=== PATIENT | female | born 2000 | race American Indian/Alaskan Native ===

== ENCOUNTER 2021-06-19 23:26 | Emergency (ER) | payer MEDICAID ==
[2021-06-20 00:03] VITALS: BP 109/57
[2021-06-20] MEDS ORDERED: ACETAMINOPHEN 325 MG TAB PO ONE (02:24)
[2021-06-20 03:21] LABS: Basophils % (Auto) 0.2 % (0.0-1.8); Eosinophils # (Auto) 0.1 K/mm3 (0.0-0.4); Eosinophils % (Auto) 0.8 % (0.0-4.3); Hematocrit 32.4 % (30.3-42.9); Hemoglobin 9.9 gm/dl (10.1-14.3); Lymphocytes # (Auto) 2.4 K/mm3 (1.2-5.4); Lymphocytes % (Auto) 23.2 % (13.4-35.0); Mean Corpuscular HGB Conc 31 % (30-34); Mean Corpuscular Volume 77 fl (79-97); Monocytes # (Auto) 0.7 K/mm3 (0.0-0.8); Monocytes % (Auto) 6.4 % (0.0-7.3); Platelet Count 215 K/mm3 (140-440); Red Blood Count 4.22 M/mm3 (3.65-5.03); Red Cell Distribution Width 14.7 % (13.2-15.2)
[2021-06-20 03:30] LABS: Bilirubin,Urine NEG (Negative); Blood,Urine NEG (Negative); Color,Urine Yellow (Yellow); Mucus,Urine 3+ /HPF; Protein,Urine <15 mg/dL mg/dL (Negative); Urobilinogen,Urine < 2.0 mg/dL (<2.0)
[2021-06-20 03:36] LABS: Alanine Aminotransferase 6 units/L (7-56); Albumin 3.9 g/dL (3.9-5); Blood Urea Nitrogen 10 mg/dL (7-17); Calcium 8.6 mg/dL (8.4-10.2); Hemolysis Index 0
[2021-06-20 03:38] LABS: BUN/Creatinine Ratio 33
--- NOTE | 2021-06-20 03:41 | Emergency Department Report ---
ED Abdominal Pain HPI - General Chief Complaint: Abdominal Pain Stated Complaint: BACK PAIN Source: patient Mode of arrival: Ambulatory Limitations: No Limitations - History of Present Illness Initial Comments: Patient is a A0 21-year-old -Hungarian female with no past medical history presents to the ED with complaint of acute onset persistent diffuse low abdominal pain that radiates to the bilateral flanks for the last 1 week. Patient states that she knows that she is but does not know how far along she is since her menstrual cycles are irregular and that she has been on control for a while. Patient states that she has not been evaluated by any [facility] physician. Patient denies vaginal bleeding, vaginal discharge, dysuria, urinary frequency and urgency, nausea, vomiting, diarrhea, chest pain or shortness of breath and sore throat, headache or dizziness. MD Complaint: abdominal pain, flank pain -: Sudden, week(s) (1) Location: suprapubic Radiation: L flank, R flank, bilateral flank Migration to: no migration, suprapubic, L flank, R flank, bilateral flank Severity: moderate Severity scale (0 -10): 6 Quality: cramping, aching, sharp Consistency: constant Improves With: nothing Worsens With: movement Associated Symptoms: denies other symptoms, anorexia. denies: nausea, vomiting, diarrhea, fever, chills, constipation, dysuria, hematuria - Related Data LMP (females 10-50): unknown Previous Rx's Medication Instructions Recorded Last Taken Type Acetaminophen [Tylenol] 500 mg PO Q6HR PRN #30 tablet 06/20/21 Unknown Rx Allergies Allergy/AdvReac Type Severity Reaction Status Date / Time No Known Allergies Allergy Verified 06/20/21 02:52 ED Review of Systems ROS: Stated complaint: BACK PAIN Other details as noted in HPI Constitutional: denies: chills, fever Eyes: denies: eye pain, eye discharge, vision change ENT: denies: ear pain, throat pain Respiratory: denies: cough, shortness of breath, wheezing Cardiovascular: denies: chest pain, palpitations Endocrine: no symptoms reported Gastrointestinal: abdominal pain (suprapubic). denies: nausea, vomiting, diarrhea, constipation, hematemesis, melena, hematochezia Genitourinary: denies: urgency, dysuria, discharge Musculoskeletal: denies: back pain, joint swelling, arthralgia Skin: denies: rash, lesions Neurological: denies: headache, weakness, paresthesias Psychiatric: denies: anxiety, depression Hematological/Lymphatic: denies: easy bleeding, easy bruising ED Past Medical Hx - Past Medical History Previous Medical History?: No - Surgical History Past Surgical History?: No - Medications Home Medications: Home Medications Medication Instructions Recorded Confirmed Last Taken Type Acetaminophen [Tylenol] 500 mg PO Q6HR PRN #30 tablet 06/20/21 Unknown Rx ED Physical Exam - General Limitations: No Limitations General appearance: alert, in no apparent distress - Head Head exam: Present: atraumatic, normocephalic, normal inspection - Eye Eye exam: Present: normal appearance, PERRL, EOMI Pupils: Present: normal accommodation - ENT ENT exam: Present: normal exam, normal orophraynx, mucous membranes moist, TM's normal bilaterally, normal external ear exam - Neck Neck exam: Present: normal inspection, full ROM - Respiratory Respiratory exam: Present: normal lung sounds bilaterally. Absent: respiratory distress, wheezes, rales, rhonchi, chest wall tenderness, accessory muscle use, decreased breath sounds, prolonged expiratory - Cardiovascular Cardiovascular Exam: Present: regular rate, normal rhythm, normal heart sounds. Absent: systolic murmur, diastolic murmur, rubs, gallop - GI/Abdominal GI/Abdominal exam: Present: soft, tenderness (Palpable diffuse lower abdominal tenderness), normal bowel sounds. Absent: guarding, rebound, hyperactive bowel sounds, hypoactive bowel sounds, mass, bruit - Extremities Exam Extremities exam: Present: normal inspection, full ROM, normal capillary refill - Back Exam Back exam: Present: normal inspection, full ROM. Absent: tenderness, CVA tenderness (R), CVA tenderness (L), muscle spasm, paraspinal tenderness, vertebral tenderness - Neurological Exam Neurological exam: Present: alert, oriented X3, CN II-XII intact, normal gait, reflexes normal - Psychiatric Psychiatric exam: Present: normal affect, normal mood - Skin Skin exam: Present: warm, dry, intact, normal color. Absent: rash ED Course Vital Signs 06/19/21 23:58 Temperature 98.1 F Pulse Rate 97 H Respiratory 16 Rate Blood Pressure 109/57 [Left] O2 Sat by Pulse 100 Oximetry ED Medical Decision Making - Lab Data Result diagrams: 06/20/21 02:46 06/20/21 02:46 - Radiology Data Radiology results: report reviewed, image reviewed [facility] [address] [place] [address] Ultrasound Report Signed Patient: YUNG PORTER MR#: [id number] : 2000 Acct:[id number] Age/Sex: 21 / F ADM Date: 06/19/21 Loc: ED Attending Dr: Ordering Physician: DOUG DORANTES Date of Service: 06/20/21 Procedure(s): US OB >= 14 weeks Fetus Accession Number(s): [id number] cc: DOUG DORANTES TRANSABDOMINAL OB PELVIC ULTRASOUND INDICATION / CLINICAL INFORMATION: Pelvic and flank pain. COMPARISON: None available. FINDINGS: There is a single intrauterine with an estimated sonographic gestational age of 16 weeks 5 days and an EDC of 11/30/21. Clinical dates are 14 weeks 1 day. presentation is cephalic. The placenta is located anteriorly, grade 0 and is low lying without previa. Amniotic fluid volume is normal. The uterine cervix measures 3.5 cm in length and the internal os is closed. The heart rate is 138 bpm. Neither ovary is identified. IMPRESSION: Single viable 16 week 5 day intrauterine without complication. Signer Name: Desean Low MD Signed: 06/20/2021 5:47 AM Workstation Name: [id number] Transcribed By: RT Dictated By: Desean Low MD Electronically Authenticated By: Desean Low MD Signed Date/Time: 06/20/21546 DD/ TD/TT: - Medical Decision Making This is a A0 21-year-old -Hungarian female with no past medical history presents to the ED with complaint of acute onset persistent diffuse low abdominal pain that radiates to the bilateral flanks for the last 1 week. Patient states that she knows that she is but does not know how far along she is since her menstrual cycles are irregular and that she has been on control for a while. Patient states that she has not been evaluated by any [facility] physician. In the ED, patient is alert and oriented x3 and is not in any distress. Patient is hemodynamically stable. Patient was treated for pain in the ED with Tylenol. Lab test results were reviewed and [place] [id number]. Pelvic ultrasound showed a single live intrauterine of approximately 16 weeks and 5 days and with a heart rate of 138 bpm and no other abnormalities. On reevaluation, patient's pain is well controlled medication. Patient will discharge home on prescription of Tylenol and was given a referral to Dr. Diana the [facility] physician congregational care pastor for further evaluation and treatment. Patient was advised return to the ED immediately if symptoms get worse. Patient was otherwise advised to follow-up with [facility] physician in 3 to 5 days for reevaluation. - Differential Diagnosis UTI; ovarian cyst; ; muscle spasm; muscle strain; Critical care attestation.: If time is entered above; I have spent that time in minutes in the direct care of this critically ill patient, excluding procedure time. ED Disposition Clinical Impression: Abdominal pain during in second trimester Disposition: 01 HOME / SELF CARE / HOMELESS Is pt being admited?: No Does the pt Need Aspirin: No Condition: Stable Instructions: Abdominal Pain (ED), Abdominal Pain During , [id number] Additional Instructions: The pelvic ultrasound showed a single live intrauterine of approximately 16 weeks and 5 days with heart rate of 138 bpm and no other abnormalities. Therefore maintain a complete pelvic rest, take Tylenol as needed for pain and follow-up with your [facility] physician Dr. Diana as advised. Contact Dr. Diana's office first thing this morning to schedule a follow-up appointment. Return to the ED immediately if symptoms get worse. Prescriptions: Acetaminophen [Tylenol] 500 mg PO Q6HR PRN #30 tablet PRN Reason: Pain , Severe (7-10) Referrals: JODY DIANA MD [Staff Physician] - 3-5 Days Time of Disposition: 06:16 Print Language: SAMI
--- NOTE | 2021-06-20 05:56 | Ultrasound Report ---
TRANSABDOMINAL OB PELVIC ULTRASOUND INDICATION / CLINICAL INFORMATION: Pelvic and flank pain. COMPARISON: None available. FINDINGS: There is a single intrauterine with an estimated sonographic gestational age of 16 weeks 5 days and an EDC of 11/30/21. Clinical dates are 14 weeks 1 day. presentation is cephalic. The p lacenta is located anteriorly, grade 0 and is low lying without previa. Amniotic fluid volume is norm al. The uterine cervix measures 3.5 cm in length and the internal os is closed. The heart rate is 1 38 bpm. Neither ovary is identified. IMPRESSION: Single viable 16 week 5 day intrauterine without complication. Signer Name: Desean Low MD Signed: 06/20/2021 5:47 AM Workstation Name: [id number]
== END 2021-06-20 06:30 | disposition home or self-care (01) ==
LOC: ED 23:26
DX: O26.892 Other specified pregnancy related conditions, second trimester (principal); R10.30 Lower abdominal pain, unspecified; Z79.899 Other long term (current) drug therapy; Z3A.16 16 weeks gestation of pregnancy
CPT/HCPCS: 36415; 76805; 80053; 81001; 84702; 85025; 99284

== ENCOUNTER 2021-08-07 18:29 | Outpatient (CLI) | payer MEDICAID ==
[2021-08-07 19:18] VITALS: BP 102/57
[2021-08-07] MEDS ORDERED: LACTATED RINGERS 500 ML IV ONE (20:30)
[2021-08-07 20:36] LABS: Bilirubin,Urine NEG (Negative); Blood,Urine MOD (Negative); Color,Urine Yellow (Yellow); Mucus,Urine FEW /HPF; Urobilinogen,Urine < 2.0 mg/dL (<2.0)
[2021-08-07 20:37] LABS: RBC,Urine > 182.0 /HPF (0.0-6.0); WBC,Urine > 182.0 /HPF (0.0-6.0)
[2021-08-07] MEDS ORDERED: ACETAMINOPHEN 500 MG TAB PO ONE (21:37)
== END 2021-08-07 21:20 | disposition home or self-care (01) ==
LOC: TRG 18:29 → APU 18:31 → TRG 21:20
PROVIDERS: ATTEND Obstetrics & Gynecology
DX: O26.892 Other specified pregnancy related conditions, second trimester (principal); R10.9 Unspecified abdominal pain; Z3A.23 23 weeks gestation of pregnancy
CPT/HCPCS: 81001; 87086

== ENCOUNTER 2021-08-17 12:15 | Outpatient (CLI) | payer MEDICAID ==
[2021-08-17 12:59] VITALS: BP 109/55
[2021-08-17] MEDS ORDERED: LACTATED RINGERS 500 ML IV ONE (13:16)
[2021-08-17 13:29] LABS: Bilirubin,Urine NEG (Negative); Blood,Urine MOD (Negative); Color,Urine Yellow (Yellow); Protein,Urine >500 mg/dL (Negative); RBC,Urine > 182.0 /HPF (0.0-6.0); Urobilinogen,Urine < 2.0 mg/dL (<2.0); WBC,Urine > 182.0 /HPF (0.0-6.0)
== END 2021-08-17 14:30 | disposition home or self-care (01) ==
LOC: TRG 12:15 → APU 12:24 → TRG 14:30
PROVIDERS: ATTEND Obstetrics & Gynecology
DX: Z34.92 Encounter for supervision of normal pregnancy, unspecified, second trimester (principal); Z3A.25 25 weeks gestation of pregnancy
CPT/HCPCS: 59025; 81001

== ENCOUNTER 2021-10-22 19:03 | Inpatient (IN) | payer MEDICAID ==
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
[2021-10-22] MEDS ORDERED: miSOPROStol 200 MCG TAB PR PRN (20:11)
[2021-10-22] MEDS ORDERED: ALUM-MAG HYDROXIDE-SIMETHICONE 200-200-20MG/5ML ORAL LIQD 30 ML PO PRN (20:11)
[2021-10-22] MEDS ORDERED: fentaNYL 100 MCG/2 ML INJ IV PRN (20:11)
[2021-10-22] MEDS ORDERED: CARBOPROST TROMETHAMINE 250 MCG/1 ML INJ IM PRN (20:11)
[2021-10-22] MEDS ORDERED: ACETAMINOPHEN 325 MG TAB PO PRN (20:11)
[2021-10-22] MEDS ORDERED: SIMETHICONE 80 MG CHEW TAB PO PRN (20:11)
[2021-10-22] MEDS ORDERED: LIDOCAINE (2%) 20 MG/1 ML VIAL 20 ML MDV INFILTRATI ONE (20:11)
[2021-10-22] MEDS ORDERED: MINERAL OIL 30 ML ORAL LIQD PO PRN (20:11)
[2021-10-22] MEDS ORDERED: TERBUTALINE 1 MG/1 ML INJ SUB-Q PRN (20:11)
[2021-10-22] MEDS ORDERED: OXYTOCIN 10 UNIT/1 ML INJ IM PRN (20:11)
[2021-10-22] MEDS ORDERED: ONDANSETRON 4 MG/2 ML INJ IV PRN (20:11)
[2021-10-22] MEDS ORDERED: AMPICILLIN/NS 2 GM/100 ML 2 GM/100 ML BAG IV ONE (20:11)
[2021-10-22] MEDS ORDERED: LOPERAMIDE 2 MG CAP PO PRN (20:11)
[2021-10-22] MEDS ORDERED: METHYLERGONOVINE MALEATE 0.2 MG/ML VIAL IM PRN (20:11)
[2021-10-22] MEDS ORDERED: DOCUSATE SODIUM 100 MG CAP PO PRN (20:11)
[2021-10-22] MEDS ORDERED: diphenhydrAMINE 25 MG CAP PO PRN (20:11)
--- NOTE | 2021-10-22 20:56 | Consultation ---
History of Present Illness Consult date: 10/22/21 Requesting physician: TRINI LOMAS Reason for consult: contractions History of present illness: Rosa Hart is a 21 yr old @ 34 and 4/7 weeks who presents with ROM and contractions; No records are available; asked to speak with Shelby Jody regarding expectant management of a 34 week . Past History - Obstetrical History : 3 Medications and Allergies Allergies Allergy/AdvReac Type Severity Reaction Status Date / Time No Known Allergies Allergy Verified 06/20/21 02:52 Home Medications Medication Instructions Recorded Confirmed Last Taken Type Acetaminophen [Tylenol] 500 mg PO Q6HR PRN #30 tablet 06/20/21 Unknown Rx Nitrofurantoin Charlton/M-Cryst 100 mg PO Q12HR #10 capsule 08/07/21 Unknown Rx [Macrobid CAP] Nitrofurantoin Charlton/M-Cryst 100 mg PO Q12HR #14 capsule 08/17/21 Unknown Rx [Macrobid CAP] Promethazine [Phenergan] 25 mg PO Q6HR PRN #20 tab 08/17/21 Unknown Rx Active Meds: Active Medications Acetaminophen (Acetaminophen 325 Mg Tab) 650 mg PO Q4H PRN PRN Reason: Pain MILD(1-3)/Fever >100.5/GONZALEZ Al Hydrox/Mg Hydrox/Simethicone (Alum-Mag Hydroxide-Simethicone [id number]/5ml Oral Liqd 30 Ml) 30 ml PO Q6H PRN PRN Reason: Indigestion Betamethasone Acet/Betameth SodPhos (Betamet Acet/Betamet Na Ph 6 Mg/Ml Inj 5 Ml Mdv) 12 mg IM Q24HR INDER Stop: 10/23/21 10:01 Carboprost Tromethamine (Carboprost Tromethamine 250 Mcg/1 Ml Inj) 250 mcg IM ONCE PRN PRN Reason: Uterine Bleeding Diphenhydramine HCl (Diphenhydramine 25 Mg Cap) 25 mg PO Q6H PRN PRN Reason: Itching Docusate Sodium (Docusate Sodium 100 Mg Cap) 100 mg PO Q12H PRN PRN Reason: Constipation Ephedrine Sulfate (Ephedrine Sulfate 50 Mg/1 Ml Inj) 10 mg IV Q2M PRN PRN Reason: Hypotension Fentanyl (Fentanyl 100 Mcg/2 Ml Inj) 100 mcg IV Q2H PRN PRN Reason: Pain,Severe (7-10) LABOR PAIN Lactated Ringer's (Lactated Ringers) 1,000 mls @ 125 mls/hr IV DIRECT INDER Oxytocin/Sodium Chloride (Pitocin/Ns 30 Unit/500ml) 30 units in 500 mls @ 40 mls/hr IV TITR INDER; Protocol Ampicillin Sodium (Ampicillin/Ns 2 Gm/100 Ml) 2 gm in 100 mls @ 100 mls/hr IV ONCE ONE; Protocol Stop: 10/22/21 21:10 Ampicillin Sodium (Ampicillin/Ns 1 Gm/50 Ml) 1 gm in 50 mls @ 100 mls/hr IV Q4H INDER; Protocol Erythromycin Lactobionate 250 (mg/ Sodium Chloride) 100 mls @ 100 mls/hr IV Q6H INDER; Protocol Stop: 10/24/21 15:59 Loperamide HCl (Loperamide 2 Mg Cap) 2 mg PO ONCE PRN PRN Reason: give with Hemabate Methylergonovine Maleate (Methylergonovine Maleate 0.2 Mg/Ml Vial) 0.2 mg IM ONCE PRN PRN Reason: Uterine Bleeding Mineral Oil (Mineral Oil 30 Ml Oral Liqd) 30 ml PO QHS PRN PRN Reason: Constipation Misoprostol (Misoprostol 200 Mcg Tab) 800 mcg IA ONCE PRN PRN Reason: Uterine Bleeding Multivitamins/Iron/Calcium ( [id number] Fumarate-Folic Acid Vit Tab) 1 each PO QDAY INDER Ondansetron HCl (Ondansetron 4 Mg/2 Ml Inj) 4 mg IV Q6H PRN PRN Reason: Nausea And Vomiting Oxytocin (Oxytocin 10 Unit/1 Ml Inj) 10 unit IM ONCE PRN PRN Reason: Uterine Bleeding Simethicone (Simethicone 80 Mg Chew Tab) 80 mg PO Q6H PRN PRN Reason: Gas pain Terbutaline Sulfate (Terbutaline 1 Mg/1 Ml Inj) 0.25 mg SUB-Q ONCE PRN PRN Reason: Hyperstimulation/Hypertonicity Results All other labs normal.
[2021-10-22] MEDS ORDERED: OXYTOCIN DRIP 30 UNITS/500 ML BAG IV SCH (21:00)
--- NOTE | 2021-10-22 21:04 | Event Note ---
Date: 10/22/21 ( Consult) INDICATIONS FOR CONSULT: Consult requested by Urmila Arnett CNM for Rupture of membranes and labor Maternal Hx: _21 yo female G3 P 1011 ( has a healthy 1 yr old at home) GA: 34 4/7 wk care with: Dr Dale Hx: PROM; PTL PMHx: migraines, seizures after a head injury. Family Hx: Noncontributory, . Social Hx: ETOH: No, Illegal Drugs: No, Smoking: No meds: Betamethasone Yes, Other:_ . Labs, if available: No PNR/labs available at time of consult Blood type: _ .+ AntiBody screen: _ . HBsAg: RPR: Rubella: GBS; Unknown HIV: CH/GC: Consulted to see this mom who is at 34 4/7 weeks with: a female infant "Martita" . Mother was admitted on 10/22 to this hospital for:PROM and labor. During the consult with this patient and her partner she was advised of all the standard procedures done to babies born with this clinical condition in the NICU. She was also advised of all the possible complications associated with premature . These complications include, but are not limited to IVH, RDS, CV Instability, Sepsis, Anemia of prematurity, Feeding problems, NEC, ROP, , etc. Expectations for hospital discharge for the baby such as breathing room air, bottle or breast feeding , gaining weight and maintaining her termperature were discussed. All her questions and concerns were addressed, and she was advised to follow the recommendations from her physicians. She was also encouraged to call for us in case of more questions. Thanks for this consultation. TOTAL TIME SPENT DURING THIS CONSULATATION WAS: 30 minutes.
[2021-10-22] MEDS: BETAMET ACET/BETAMET NA PH 6 MG/ML INJ 5 ML MDV IM SCH (21:22)
[2021-10-22] MEDS: LACTATED RINGERS 1,000 ML IV SCH (21:44)
[2021-10-22 22:09] LABS: Basophils # (Auto) 0.1 K/mm3 (0.0-0.1); Basophils % (Auto) 0.6 % (0.0-1.8); Eosinophils % (Auto) 0.3 % (0.0-4.3); Hematocrit 27.9 % (30.3-42.9); Hemoglobin 8.7 gm/dl (10.1-14.3); Lymphocytes # (Auto) 2.6 K/mm3 (1.2-5.4); Lymphocytes % (Auto) 19.7 % (13.4-35.0); Mean Corpuscular HGB Conc 31 % (30-34); Mean Corpuscular Volume 75 fl (79-97); Monocytes # (Auto) 0.8 K/mm3 (0.0-0.8); Red Blood Count 3.72 M/mm3 (3.65-5.03); Red Cell Distribution Width 14.8 % (13.2-15.2)
[2021-10-22 22:29] LABS: Platelet Count 150 K/mm3 (140-440)
--- NOTE | 2021-10-22 22:38 | Ultrasound Report ---
. US OB limited INDICATION: presentation and PAVAN. TECHNIQUE: Limited OB ultrasound COMPARISON: None available. FINDINGS: presentation is cephalic. Amniotic fluid index measures 6.7 cm, which is slightly below normal level. heart rate measures 1 43 bpm. Signer Name: Estuardo Shukla MD Signed: 10/22/2021 10:34 PM Workstation Name: [id number]
[2021-10-22] MEDS: ERYTHROMYCIN LACTOBIONATE 250 MG in SODIUM CHLORIDE 0.9% 100 ML IV SCH (23:48)
[2021-10-23] MEDS ORDERED: AMPICILLIN/NS 1 GM/50 ML 1 GM/50 ML BAG IV SCH (01:00)
[2021-10-23] MEDS: ERYTHROMYCIN LACTOBIONATE 250 MG in SODIUM CHLORIDE 0.9% 100 ML IV SCH ×4 (05:23→21:24)
--- NOTE | 2021-10-23 07:55 | Progress Note ---
Assessment and Plan A: 21 y.o. @ 34.5 wks, PPROM, clear fluid ~ 12 hrs. - Patient Problems (1) 34 weeks gestation of Current Visit: Yes Status: Acute Plan to address problem: Continue to monitor status through EFM. - Currently category 1. (2) PROM (premature rupture of membranes) Current Visit: Yes Status: Acute Qualifiers: PROM onset of labor timing: onset of labor within 24 hours of rupture PROM gestational age: -third trimester Qualified Code(s): O42.013 - premature rupture of membranes, onset of labor within 24 hours of rupture, third trimester Plan to address problem: Continue with antibiotics. Continue with EFM. Monitor maternal status. Limit vaginal exams. - Last exam on 10/22 @ 2008 was 3/50/-3. Second dose of BMZ due @ 2008 tonight. Augmentation of labor after second dose of BMZ. -Will consult with MD regarding final plan for possible augmentation. Anticipate . Subjective - Subjective Date of service: 10/23/21 Principal diagnosis: 34.5 wks, PPROM clear fluid, ~ 12 hours Interval history: Pt states that she continues to leak clear fluid. Denies vaginal bleeding. State s she is feeling occasional ctxs. There is positive movement. Patient reports: loss of fluid, movement normal Objective - Vital Signs Vital Signs: Vital Signs - 12hr 10/22/21 10/22/21 10/22/21 21:20 21:25 21:30 Temperature Pulse Rate 103 H 93 H 85 Respiratory Rate Blood Pressure Blood Pressure [Left] O2 Sat by Pulse 98 99 100 Oximetry O2 Sat by Pulse Oximetry [ Bilateral] 10/22/21 10/22/21 10/22/21 21:35 21:40 21:45 Temperature Pulse Rate 92 H 90 93 H Respiratory Rate Blood Pressure Blood Pressure [Left] O2 Sat by Pulse 100 100 100 Oximetry O2 Sat by Pulse Oximetry [ Bilateral] 10/22/21 10/22/21 10/22/21 21:50 21:55 22:00 Temperature Pulse Rate 95 H 77 88 Respiratory Rate Blood Pressure Blood Pressure [Left] O2 Sat by Pulse 100 100 100 Oximetry O2 Sat by Pulse Oximetry [ Bilateral] 10/22/21 10/22/21 10/22/21 22:05 22:10 22:15 Temperature Pulse Rate 101 H 83 96 H Respiratory Rate Blood Pressure Blood Pressure [Left] O2 Sat by Pulse 100 100 100 Oximetry O2 Sat by Pulse Oximetry [ Bilateral] 10/22/21 10/22/21 10/22/21 22:20 22:25 22:26 Temperature Pulse Rate 90 80 87 Respiratory Rate Blood Pressure Blood Pressure [Left] O2 Sat by Pulse 100 100 84 Oximetry O2 Sat by Pulse Oximetry [ Bilateral] 10/22/21 10/22/21 10/22/21 22:30 22:35 22:40 Temperature Pulse Rate 92 H 84 98 H Respiratory Rate Blood Pressure Blood Pressure [Left] O2 Sat by Pulse 100 100 100 Oximetry O2 Sat by Pulse Oximetry [ Bilateral] 10/22/21 10/22/21 10/22/21 22:45 22:50 22:55 Temperature Pulse Rate 95 H 95 H 86 Respiratory Rate Blood Pressure Blood Pressure [Left] O2 Sat by Pulse 100 100 100 Oximetry O2 Sat by Pulse Oximetry [ Bilateral] 10/22/21 10/22/21 10/22/21 23:00 23:05 23:10 Temperature Pulse Rate 91 H 90 89 Respiratory Rate Blood Pressure Blood Pressure [Left] O2 Sat by Pulse 99 99 100 Oximetry O2 Sat by Pulse Oximetry [ Bilateral] 10/22/21 10/22/21 10/22/21 23:15 23:24 23:29 Temperature Pulse Rate 84 112 H 105 H Respiratory Rate Blood Pressure Blood Pressure [Left] O2 Sat by Pulse 99 100 100 Oximetry O2 Sat by Pulse Oximetry [ Bilateral] 10/22/21 10/22/21 10/22/21 23:34 23:38 23:39 Temperature 97.9 F Pulse Rate 98 H 81 91 H Respiratory 18 Rate Blood Pressure 106/57 Blood Pressure 106/57 [Left] O2 Sat by Pulse 99 100 Oximetry O2 Sat by Pulse Oximetry [ Bilateral] 10/22/21 10/22/21 10/22/21 23:42 23:44 23:49 Temperature Pulse Rate 86 86 Respiratory Rate Blood Pressure Blood Pressure [Left] O2 Sat by Pulse 100 100 Oximetry O2 Sat by Pulse 100 Oximetry [ Bilateral] 10/22/21 10/22/21 10/23/21 23:54 23:59 00:04 Temperature Pulse Rate 100 H 104 H 102 H Respiratory Rate Blood Pressure Blood Pressure [Left] O2 Sat by Pulse 99 99 98 Oximetry O2 Sat by Pulse Oximetry [ Bilateral] 10/23/21 10/23/21 10/23/21 00:09 00:14 00:19 Temperature Pulse Rate 116 H 92 H 86 Respiratory Rate Blood Pressure Blood Pressure [Left] O2 Sat by Pulse 98 100 100 Oximetry O2 Sat by Pulse Oximetry [ Bilateral] 10/23/21 10/23/21 10/23/21 00:24 00:29 00:34 Temperature Pulse Rate 109 H 94 H 99 H Respiratory Rate Blood Pressure Blood Pressure [Left] O2 Sat by Pulse 100 99 100 Oximetry O2 Sat by Pulse Oximetry [ Bilateral] 10/23/21 10/23/21 10/23/21 00:39 00:44 00:49 Temperature Pulse Rate 108 H 98 H 107 H Respiratory Rate Blood Pressure Blood Pressure [Left] O2 Sat by Pulse 98 100 98 Oximetry O2 Sat by Pulse Oximetry [ Bilateral] 10/23/21 10/23/21 10/23/21 00:54 00:59 01:04 Temperature Pulse Rate 101 H 104 H 105 H Respiratory Rate Blood Pressure Blood Pressure [Left] O2 Sat by Pulse 99 99 100 Oximetry O2 Sat by Pulse Oximetry [ Bilateral] 10/23/21 10/23/21 10/23/21 01:09 01:14 01:19 Temperature Pulse Rate 91 H 87 90 Respiratory Rate Blood Pressure Blood Pressure [Left] O2 Sat by Pulse 100 99 99 Oximetry O2 Sat by Pulse Oximetry [ Bilateral] 10/23/21 10/23/21 10/23/21 01:24 01:29 01:34 Temperature Pulse Rate 90 86 88 Respiratory Rate Blood Pressure Blood Pressure [Left] O2 Sat by Pulse 99 98 98 Oximetry O2 Sat by Pulse Oximetry [ Bilateral] 10/23/21 10/23/21 10/23/21 01:39 01:44 01:49 Temperature Pulse Rate 92 H 93 H 90 Respiratory Rate Blood Pressure Blood Pressure [Left] O2 Sat by Pulse 98 99 98 Oximetry O2 Sat by Pulse Oximetry [ Bilateral] 10/23/21 10/23/21 10/23/21 01:54 01:59 02:04 Temperature Pulse Rate 95 H 93 H 92 H Respiratory Rate Blood Pressure Blood Pressure [Left] O2 Sat by Pulse 98 98 98 Oximetry O2 Sat by Pulse Oximetry [ Bilateral] 10/23/21 10/23/21 10/23/21 02:09 02:14 02:19 Temperature Pulse Rate 91 H 107 H 91 H Respiratory Rate Blood Pressure Blood Pressure [Left] O2 Sat by Pulse 98 98 99 Oximetry O2 Sat by Pulse Oximetry [ Bilateral] 10/23/21 10/23/21 10/23/21 02:24 02:29 02:34 Temperature Pulse Rate 92 H 93 H 89 Respiratory Rate Blood Pressure Blood Pressure [Left] O2 Sat by Pulse 99 99 99 Oximetry O2 Sat by Pulse Oximetry [ Bilateral] 10/23/21 10/23/21 10/23/21 02:39 02:44 02:49 Temperature Pulse Rate 89 87 90 Respiratory Rate Blood Pressure Blood Pressure [Left] O2 Sat by Pulse 100 99 98 Oximetry O2 Sat by Pulse Oximetry [ Bilateral] 10/23/21 10/23/21 10/23/21 02:54 02:59 03:04 Temperature Pulse Rate 88 97 H 93 H Respiratory Rate Blood Pressure Blood Pressure [Left] O2 Sat by Pulse 98 98 98 Oximetry O2 Sat by Pulse Oximetry [ Bilateral] 10/23/21 10/23/21 10/23/21 03:09 03:14 03:19 Temperature Pulse Rate 114 H 80 96 H Respiratory Rate Blood Pressure Blood Pressure [Left] O2 Sat by Pulse 98 99 99 Oximetry O2 Sat by Pulse Oximetry [ Bilateral] 10/23/21 10/23/21 10/23/21 03:24 03:29 03:34 Temperature Pulse Rate 87 95 H 81 Respiratory Rate Blood Pressure Blood Pressure [Left] O2 Sat by Pulse 98 99 98 Oximetry O2 Sat by Pulse Oximetry [ Bilateral] 10/23/21 10/23/21 10/23/21 03:39 03:44 03:46 Temperature Pulse Rate 79 86 97 H Respiratory Rate Blood Pressure Blood Pressure [Left] O2 Sat by Pulse 99 99 91 Oximetry O2 Sat by Pulse Oximetry [ Bilateral] 10/23/21 10/23/21 10/23/21 04:03 04:08 04:13 Temperature Pulse Rate 80 80 88 Respiratory Rate Blood Pressure Blood Pressure [Left] O2 Sat by Pulse 100 100 100 Oximetry O2 Sat by Pulse Oximetry [ Bilateral] 10/23/21 10/23/21 10/23/21 04:18 04:23 04:28 Temperature Pulse Rate 90 90 87 Respiratory Rate Blood Pressure Blood Pressure [Left] O2 Sat by Pulse 100 100 99 Oximetry O2 Sat by Pulse Oximetry [ Bilateral] 10/23/21 10/23/21 10/23/21 04:33 04:38 04:43 Temperature Pulse Rate 91 H 88 98 H Respiratory Rate Blood Pressure Blood Pressure [Left] O2 Sat by Pulse 100 100 99 Oximetry O2 Sat by Pulse Oximetry [ Bilateral] 10/23/21 10/23/21 10/23/21 04:48 04:53 04:58 Temperature Pulse Rate 85 99 H 95 H Respiratory Rate Blood Pressure Blood Pressure [Left] O2 Sat by Pulse 99 98 98 Oximetry O2 Sat by Pulse Oximetry [ Bilateral] 10/23/21 10/23/21 10/23/21 05:03 05:08 05:13 Temperature Pulse Rate 90 92 H 91 H Respiratory Rate Blood Pressure Blood Pressure [Left] O2 Sat by Pulse 98 98 98 Oximetry O2 Sat by Pulse Oximetry [ Bilateral] 10/23/21 10/23/21 10/23/21 05:18 05:23 05:25 Temperature 98.4 F Pulse Rate 91 H 94 H 80 Respiratory 18 Rate Blood Pressure 91/48 Blood Pressure 91/48 [Left] O2 Sat by Pulse 100 100 Oximetry O2 Sat by Pulse Oximetry [ Bilateral] 10/23/21 10/23/21 10/23/21 05:28 05:33 05:38 Temperature Pulse Rate 86 95 H 111 H Respiratory Rate Blood Pressure Blood Pressure [Left] O2 Sat by Pulse 100 98 98 Oximetry O2 Sat by Pulse Oximetry [ Bilateral] 10/23/21 10/23/21 10/23/21 05:43 05:48 05:53 Temperature Pulse Rate 99 H 105 H 98 H Respiratory Rate Blood Pressure Blood Pressure [Left] O2 Sat by Pulse 99 99 100 Oximetry O2 Sat by Pulse Oximetry [ Bilateral] 10/23/21 10/23/21 10/23/21 05:58 06:03 06:08 Temperature Pulse Rate 87 96 H 98 H Respiratory Rate Blood Pressure 89/54 Blood Pressure [Left] O2 Sat by Pulse 99 100 100 Oximetry O2 Sat by Pulse Oximetry [ Bilateral] 10/23/21 10/23/21 10/23/21 06:13 06:18 06:23 Temperature Pulse Rate 113 H 96 H 96 H Respiratory Rate Blood Pressure Blood Pressure [Left] O2 Sat by Pulse 100 99 100 Oximetry O2 Sat by Pulse Oximetry [ Bilateral] 10/23/21 10/23/21 10/23/21 06:28 06:33 06:38 Temperature Pulse Rate 94 H 94 H 82 Respiratory Rate Blood Pressure 98/57 Blood Pressure [Left] O2 Sat by Pulse 100 99 100 Oximetry O2 Sat by Pulse Oximetry [ Bilateral] 10/23/21 10/23/21 10/23/21 06:43 06:48 06:53 Temperature Pulse Rate 87 87 101 H Respiratory Rate Blood Pressure Blood Pressure [Left] O2 Sat by Pulse 100 99 99 Oximetry O2 Sat by Pulse Oximetry [ Bilateral] 10/23/21 10/23/21 10/23/21 06:58 07:03 07:08 Temperature Pulse Rate 89 90 99 H Respiratory Rate Blood Pressure 103/58 Blood Pressure [Left] O2 Sat by Pulse 99 99 98 Oximetry O2 Sat by Pulse Oximetry [ Bilateral] 10/23/21 10/23/21 10/23/21 07:13 07:18 07:23 Temperature Pulse Rate 99 H 102 H 102 H Respiratory Rate Blood Pressure Blood Pressure [Left] O2 Sat by Pulse 98 100 99 Oximetry O2 Sat by Pulse Oximetry [ Bilateral] 10/23/21 10/23/21 10/23/21 07:28 07:33 07:38 Temperature Pulse Rate 92 H 92 H 87 Respiratory Rate Blood Pressure 100/55 Blood Pressure [Left] O2 Sat by Pulse 99 99 99 Oximetry O2 Sat by Pulse Oximetry [ Bilateral] 10/23/21 10/23/21 07:43 07:45 Temperature Pulse Rate 103 H 104 H Respiratory Rate Blood Pressure Blood Pressure [Left] O2 Sat by Pulse 98 90 Oximetry O2 Sat by Pulse Oximetry [ Bilateral] - Exam Narrative Exam: Last cervical exam @ 2008 on 10/22 was 3/50/-3. Breasts: deferred Cardiovascular: Regular rate Lungs: Normal air movement Abdomen: Present: normal appearance, soft Uterus: Present: normal (For gestational age. ) FHR: category 1 Uterine Contraction Monitor Mode: External Uterine Contraction Pattern: Irregular Uterine Tone Measurement Phase: Resting Uterine Contraction Intensity: Mild Extremities: normal - Labs Labs: Abnormal Labs 10/22/21 21:50 WBC 13.3 H Hgb 8.7 L Hct 27.9 L MCV 75 L MCH 23 L Seg Neutrophils % 73.4 H Seg Neutrophils # 9.8 H Laboratory Results - last 24 hr 10/22/21 10/22/21 10/22/21 21:50 21:50 21:50 WBC 13.3 H RBC 3.72 Hgb 8.7 L Hct 27.9 L MCV 75 L MCH 23 L MCHC 31 RDW 14.8 Plt Count 150 Lymph % (Auto) 19.7 [place] % (Auto) 6.0 Eos % (Auto) 0.3 Baso % (Auto) 0.6 Lymph # (Auto) 2.6 [place] # (Auto) 0.8 Eos # (Auto) 0.0 Baso # (Auto) 0.1 Seg Neutrophils % 73.4 H Seg Neutrophils # 9.8 H Syphilis IgG/IgM Ab Nonreactive HIV 1&2 Antibody Rapid HIV P24 Antigen Blood Type O POSITIVE Antibody Screen Negative 10/22/21 21:50 WBC RBC Hgb Hct MCV MCH MCHC RDW Plt Count Lymph % (Auto) [place] % (Auto) Eos % (Auto) Baso % (Auto) Lymph # (Auto) [place] # (Auto) Eos # (Auto) Baso # (Auto) Seg Neutrophils % Seg Neutrophils # Syphilis IgG/IgM Ab HIV 1&2 Antibody Rapid Non react HIV P24 Antigen Non react Blood Type Antibody Screen
[2021-10-23] MEDS ORDERED: PRENATAL VIT27-FE FUMARATE-FOLIC ACID VIT TAB PO SCH (10:00)
[2021-10-23] MEDS: LACTATED RINGERS 1,000 ML IV SCH ×2 (10:23→20:41)
[2021-10-23] MEDS: BETAMET ACET/BETAMET NA PH 6 MG/ML INJ 5 ML MDV IM SCH (21:24)
--- NOTE | 2021-10-23 21:53 | Progress Note ---
Assessment and Plan Second dose of BMZ given by RN. FHT's with variable deceleration in the last couple hours, now category 1. Dr Artis made aware and orders received for Pitocin induction of labor to start now. POC d/w pt. Questions encouraged and addressed. Pt verbalizes understanding and agrees to POC. Juanis RN notified of new orders. Anticipate . - Patient Problems (1) 34 weeks gestation of Current Visit: Yes Status: Acute Plan to address problem: NICU consult completed continuous monitoring (2) PROM (premature rupture of membranes) Current Visit: Yes Status: Acute Qualifiers: PROM onset of labor timing: onset of labor within 24 hours of rupture PROM gestational age: -third trimester Qualified Code(s): O42.013 - premature rupture of membranes, onset of labor within 24 hours of rupture, third trimester Plan to address problem: antibiotics to continue IV as ordered limit vaginal exams Subjective - Subjective Date of service: 10/23/21 Principal diagnosis: 34.5 wks, PPROM clear fluid, >24 hours since ROM Patient reports: loss of fluid, movement normal, no new complaints, no vaginal bleeding, no contractions Objective - Vital Signs Vital Signs: Vital Signs - 12hr 10/23/21 10/23/21 10/23/21 09:52 09:57 10:02 Temperature Pulse Rate 93 H 94 H 102 H Respiratory Rate Blood Pressure O2 Sat by Pulse 99 100 99 Oximetry O2 Sat by Pulse Oximetry [ Bilateral] 10/23/21 10/23/21 10/23/21 10:04 10:07 10:12 Temperature Pulse Rate 88 90 87 Respiratory Rate Blood Pressure 96/54 O2 Sat by Pulse 99 99 Oximetry O2 Sat by Pulse Oximetry [ Bilateral] 10/23/21 10/23/21 10/23/21 10:17 10:22 10:27 Temperature Pulse Rate 89 96 H 91 H Respiratory Rate Blood Pressure O2 Sat by Pulse 100 100 100 Oximetry O2 Sat by Pulse Oximetry [ Bilateral] 10/23/21 10/23/21 10/23/21 10:32 10:33 10:37 Temperature Pulse Rate 83 89 99 H Respiratory Rate Blood Pressure 111/51 O2 Sat by Pulse 100 100 Oximetry O2 Sat by Pulse Oximetry [ Bilateral] 10/23/21 10/23/21 10/23/21 10:42 10:47 10:52 Temperature Pulse Rate 92 H 99 H 88 Respiratory Rate Blood Pressure O2 Sat by Pulse 100 100 100 Oximetry O2 Sat by Pulse Oximetry [ Bilateral] 10/23/21 10/23/21 10/23/21 10:57 11:02 11:05 Temperature Pulse Rate 100 H 100 H 104 H Respiratory Rate Blood Pressure 112/60 O2 Sat by Pulse 100 100 Oximetry O2 Sat by Pulse Oximetry [ Bilateral] 10/23/21 10/23/21 10/23/21 11:07 11:12 11:17 Temperature Pulse Rate 97 H 103 H 99 H Respiratory Rate Blood Pressure O2 Sat by Pulse 100 100 100 Oximetry O2 Sat by Pulse Oximetry [ Bilateral] 10/23/21 10/23/21 10/23/21 11:22 11:27 11:32 Temperature Pulse Rate 100 H 95 H 95 H Respiratory Rate Blood Pressure O2 Sat by Pulse 100 100 100 Oximetry O2 Sat by Pulse Oximetry [ Bilateral] 10/23/21 10/23/21 10/23/21 11:33 11:37 11:47 Temperature Pulse Rate 93 H 95 H 106 H Respiratory Rate Blood Pressure 98/53 O2 Sat by Pulse 100 100 Oximetry O2 Sat by Pulse Oximetry [ Bilateral] 10/23/21 10/23/21 10/23/21 11:48 11:52 11:57 Temperature Pulse Rate 114 H 97 H 101 H Respiratory Rate Blood Pressure O2 Sat by Pulse 79 L 100 100 Oximetry O2 Sat by Pulse Oximetry [ Bilateral] 10/23/21 10/23/21 10/23/21 12:02 12:03 12:07 Temperature Pulse Rate 102 H 100 H 105 H Respiratory Rate Blood Pressure 112/57 O2 Sat by Pulse 100 86 100 Oximetry O2 Sat by Pulse Oximetry [ Bilateral] 10/23/21 10/23/21 10/23/21 12:12 12:17 12:22 Temperature Pulse Rate 104 H 102 H 106 H Respiratory Rate Blood Pressure O2 Sat by Pulse 100 100 100 Oximetry O2 Sat by Pulse Oximetry [ Bilateral] 10/23/21 10/23/21 10/23/21 12:23 12:27 12:32 Temperature Pulse Rate 105 H 113 H 114 H Respiratory Rate Blood Pressure O2 Sat by Pulse 88 100 100 Oximetry O2 Sat by Pulse Oximetry [ Bilateral] 10/23/21 10/23/21 10/23/21 12:33 12:37 12:42 Temperature Pulse Rate 110 H 99 H 107 H Respiratory Rate Blood Pressure 109/73 O2 Sat by Pulse 100 100 Oximetry O2 Sat by Pulse Oximetry [ Bilateral] 10/23/21 10/23/21 10/23/21 12:47 12:52 12:57 Temperature Pulse Rate 105 H 108 H 106 H Respiratory Rate Blood Pressure O2 Sat by Pulse 100 100 100 Oximetry O2 Sat by Pulse Oximetry [ Bilateral] 10/23/21 10/23/21 10/23/21 13:09 13:14 13:19 Temperature Pulse Rate 105 H 106 H 104 H Respiratory Rate Blood Pressure O2 Sat by Pulse 100 100 100 Oximetry O2 Sat by Pulse Oximetry [ Bilateral] 10/23/21 10/23/21 10/23/21 13:24 13:29 13:33 Temperature Pulse Rate 105 H 108 H 112 H Respiratory Rate Blood Pressure 100/63 O2 Sat by Pulse 100 100 Oximetry O2 Sat by Pulse Oximetry [ Bilateral] 10/23/21 10/23/21 10/23/21 13:34 13:39 13:44 Temperature Pulse Rate 110 H 113 H 108 H Respiratory Rate Blood Pressure O2 Sat by Pulse 100 100 100 Oximetry O2 Sat by Pulse Oximetry [ Bilateral] 10/23/21 10/23/21 10/23/21 13:49 13:54 13:59 Temperature Pulse Rate 101 H 109 H 104 H Respiratory Rate Blood Pressure O2 Sat by Pulse 100 100 100 Oximetry O2 Sat by Pulse Oximetry [ Bilateral] 10/23/21 10/23/21 10/23/21 14:04 14:09 14:14 Temperature Pulse Rate 109 H 104 H 103 H Respiratory Rate Blood Pressure O2 Sat by Pulse 100 100 99 Oximetry O2 Sat by Pulse Oximetry [ Bilateral] 10/23/21 10/23/21 10/23/21 14:19 14:20 14:24 Temperature Pulse Rate 101 H 106 H 96 H Respiratory Rate Blood Pressure O2 Sat by Pulse 100 83 L 100 Oximetry O2 Sat by Pulse Oximetry [ Bilateral] 10/23/21 10/23/21 10/23/21 14:29 14:34 14:39 Temperature Pulse Rate 105 H 110 H 109 H Respiratory Rate Blood Pressure O2 Sat by Pulse 100 100 100 Oximetry O2 Sat by Pulse Oximetry [ Bilateral] 10/23/21 10/23/21 10/23/21 14:44 14:49 14:54 Temperature Pulse Rate 98 H 118 H 113 H Respiratory Rate Blood Pressure O2 Sat by Pulse 100 100 100 Oximetry O2 Sat by Pulse Oximetry [ Bilateral] 10/23/21 10/23/21 10/23/21 14:59 15:04 15:09 Temperature Pulse Rate 113 H 117 H 110 H Respiratory Rate Blood Pressure O2 Sat by Pulse 100 100 100 Oximetry O2 Sat by Pulse Oximetry [ Bilateral] 10/23/21 10/23/21 10/23/21 15:14 15:19 15:33 Temperature Pulse Rate 110 H 119 H 103 H Respiratory Rate Blood Pressure 117/58 O2 Sat by Pulse 100 100 Oximetry O2 Sat by Pulse Oximetry [ Bilateral] 10/23/21 10/23/21 10/23/21 15:52 15:57 16:02 Temperature Pulse Rate 109 H 103 H 103 H Respiratory Rate Blood Pressure O2 Sat by Pulse 100 100 100 Oximetry O2 Sat by Pulse Oximetry [ Bilateral] 10/23/21 10/23/21 10/23/21 16:03 16:07 16:12 Temperature Pulse Rate 97 H 95 H 107 H Respiratory Rate Blood Pressure 106/55 O2 Sat by Pulse 100 100 Oximetry O2 Sat by Pulse Oximetry [ Bilateral] 10/23/21 10/23/21 10/23/21 16:17 16:22 16:27 Temperature Pulse Rate 97 H 93 H 100 H Respiratory Rate Blood Pressure O2 Sat by Pulse 100 100 100 Oximetry O2 Sat by Pulse Oximetry [ Bilateral] 10/23/21 10/23/21 10/23/21 16:32 16:33 16:37 Temperature Pulse Rate 107 H 103 H 108 H Respiratory Rate Blood Pressure 112/59 O2 Sat by Pulse 100 100 Oximetry O2 Sat by Pulse Oximetry [ Bilateral] 10/23/21 10/23/21 10/23/21 16:42 16:47 16:52 Temperature Pulse Rate 125 H 109 H 102 H Respiratory Rate Blood Pressure O2 Sat by Pulse 100 100 100 Oximetry O2 Sat by Pulse Oximetry [ Bilateral] 10/23/21 10/23/21 10/23/21 16:57 17:02 17:03 Temperature Pulse Rate 109 H 108 H 103 H Respiratory Rate Blood Pressure 99/63 O2 Sat by Pulse 100 100 Oximetry O2 Sat by Pulse Oximetry [ Bilateral] 10/23/21 10/23/21 10/23/21 17:07 17:12 17:17 Temperature Pulse Rate 102 H 98 H 100 H Respiratory Rate Blood Pressure O2 Sat by Pulse 100 100 100 Oximetry O2 Sat by Pulse Oximetry [ Bilateral] 10/23/21 10/23/21 10/23/21 17:22 17:27 17:29 Temperature Pulse Rate 122 H 113 H 104 H Respiratory Rate Blood Pressure O2 Sat by Pulse 100 100 90 Oximetry O2 Sat by Pulse Oximetry [ Bilateral] 10/23/21 10/23/21 10/23/21 17:32 17:33 17:35 Temperature Pulse Rate 112 H 97 H 104 H Respiratory Rate Blood Pressure 110/64 O2 Sat by Pulse 100 89 Oximetry O2 Sat by Pulse Oximetry [ Bilateral] 10/23/21 10/23/21 10/23/21 17:37 17:42 17:47 Temperature Pulse Rate 101 H 116 H 101 H Respiratory Rate Blood Pressure O2 Sat by Pulse 100 100 100 Oximetry O2 Sat by Pulse Oximetry [ Bilateral] 10/23/21 10/23/21 10/23/21 17:52 17:57 18:02 Temperature Pulse Rate 95 H 107 H 102 H Respiratory Rate Blood Pressure O2 Sat by Pulse 100 100 100 Oximetry O2 Sat by Pulse Oximetry [ Bilateral] 10/23/21 10/23/21 10/23/21 18:03 18:07 18:12 Temperature Pulse Rate 100 H 94 H 100 H Respiratory Rate Blood Pressure 104/72 O2 Sat by Pulse 100 100 Oximetry O2 Sat by Pulse Oximetry [ Bilateral] 10/23/21 10/23/21 10/23/21 18:17 18:22 18:27 Temperature Pulse Rate 95 H 98 H 99 H Respiratory Rate Blood Pressure O2 Sat by Pulse 100 100 100 Oximetry O2 Sat by Pulse Oximetry [ Bilateral] 10/23/21 10/23/21 10/23/21 18:32 18:33 18:50 Temperature Pulse Rate 102 H 103 H 100 H Respiratory Rate Blood Pressure 107/66 O2 Sat by Pulse 100 94 Oximetry O2 Sat by Pulse Oximetry [ Bilateral] 10/23/21 10/23/21 10/23/21 18:55 19:00 19:03 Temperature Pulse Rate 106 H 97 H 103 H Respiratory Rate Blood Pressure 110/63 O2 Sat by Pulse 100 100 Oximetry O2 Sat by Pulse Oximetry [ Bilateral] 10/23/21 10/23/21 10/23/21 19:05 19:07 19:10 Temperature 98.8 F Pulse Rate 102 H 105 H Respiratory 14 Rate Blood Pressure O2 Sat by Pulse 100 100 100 Oximetry O2 Sat by Pulse 100 Oximetry [ Bilateral] 10/23/21 10/23/21 10/23/21 19:15 19:20 19:25 Temperature Pulse Rate 101 H 100 H 106 H Respiratory Rate Blood Pressure O2 Sat by Pulse 100 100 100 Oximetry O2 Sat by Pulse Oximetry [ Bilateral] 10/23/21 10/23/21 10/23/21 19:30 19:33 19:35 Temperature Pulse Rate 100 H 97 H 103 H Respiratory Rate Blood Pressure 104/56 O2 Sat by Pulse 100 100 Oximetry O2 Sat by Pulse Oximetry [ Bilateral] 10/23/21 10/23/21 10/23/21 19:40 19:45 19:50 Temperature Pulse Rate 103 H 111 H 91 H Respiratory Rate Blood Pressure O2 Sat by Pulse 100 100 100 Oximetry O2 Sat by Pulse Oximetry [ Bilateral] 10/23/21 10/23/21 10/23/21 19:55 20:00 20:03 Temperature Pulse Rate 103 H 104 H 106 H Respiratory Rate Blood Pressure 102/52 O2 Sat by Pulse 100 100 Oximetry O2 Sat by Pulse Oximetry [ Bilateral] 10/23/21 10/23/21 10/23/21 20:05 20:10 20:15 Temperature Pulse Rate 106 H 104 H 104 H Respiratory Rate Blood Pressure O2 Sat by Pulse 100 100 100 Oximetry O2 Sat by Pulse Oximetry [ Bilateral] 10/23/21 10/23/21 10/23/21 20:20 20:25 20:30 Temperature Pulse Rate 103 H 115 H 105 H Respiratory Rate Blood Pressure O2 Sat by Pulse 99 100 99 Oximetry O2 Sat by Pulse Oximetry [ Bilateral] 10/23/21 10/23/21 10/23/21 20:33 20:35 20:40 Temperature Pulse Rate 105 H 100 H 114 H Respiratory Rate Blood Pressure 94/53 O2 Sat by Pulse 99 100 Oximetry O2 Sat by Pulse Oximetry [ Bilateral] 10/23/21 10/23/21 10/23/21 20:45 20:50 20:55 Temperature Pulse Rate 107 H 112 H 107 H Respiratory Rate Blood Pressure O2 Sat by Pulse 100 100 100 Oximetry O2 Sat by Pulse Oximetry [ Bilateral] 10/23/21 10/23/21 10/23/21 21:00 21:08 21:13 Temperature Pulse Rate 115 H 98 H 115 H Respiratory Rate Blood Pressure O2 Sat by Pulse 100 88 100 Oximetry O2 Sat by Pulse Oximetry [ Bilateral] 10/23/21 10/23/21 10/23/21 21:18 21:23 21:28 Temperature Pulse Rate 109 H 105 H 105 H Respiratory Rate Blood Pressure O2 Sat by Pulse 100 100 100 Oximetry O2 Sat by Pulse Oximetry [ Bilateral] 10/23/21 10/23/21 10/23/21 21:33 21:38 21:43 Temperature Pulse Rate 94 H 107 H 110 H Respiratory Rate Blood Pressure 108/55 O2 Sat by Pulse 100 100 100 Oximetry O2 Sat by Pulse Oximetry [ Bilateral] - Exam Breasts: deferred Lungs: Normal air movement Abdomen: Present: normal appearance, soft. Absent: distention, tenderness, guarding Uterus: Present: other (gravid) FHR: auscultation normal, category 1 Uterine Contraction Monitor Mode: External Uterine Contraction Pattern: Irregular Uterine Tone Measurement Phase: Resting Extremities: normal - Labs Labs: Abnormal Labs 10/22/21 21:50 WBC 13.3 H Hgb 8.7 L Hct 27.9 L MCV 75 L MCH 23 L Seg Neutrophils % 73.4 H Seg Neutrophils # 9.8 H Laboratory Results - last 24 hr 10/22/21 10/22/21 10/22/21 21:50 21:50 21:50 WBC 13.3 H RBC 3.72 Hgb 8.7 L Hct 27.9 L MCV 75 L MCH 23 L MCHC 31 RDW 14.8 Plt Count 150 Lymph % (Auto) 19.7 [place] % (Auto) 6.0 Eos % (Auto) 0.3 Baso % (Auto) 0.6 Lymph # (Auto) 2.6 [place] # (Auto) 0.8 Eos # (Auto) 0.0 Baso # (Auto) 0.1 Seg Neutrophils % 73.4 H Seg Neutrophils # 9.8 H Syphilis IgG/IgM Ab Nonreactive SARS-CoV-2 (PCR) HIV 1&2 Antibody Rapid HIV P24 Antigen Blood Type O POSITIVE Antibody Screen Negative 10/22/21 10/23/21 21:50 Unknown WBC RBC Hgb Hct MCV MCH MCHC RDW Plt Count Lymph % (Auto) [place] % (Auto) Eos % (Auto) Baso % (Auto) Lymph # (Auto) [place] # (Auto) Eos # (Auto) Baso # (Auto) Seg Neutrophils % Seg Neutrophils # Syphilis IgG/IgM Ab SARS-CoV-2 (PCR) Negative HIV 1&2 Antibody Rapid Non react HIV P24 Antigen Non react Blood Type Antibody Screen
[2021-10-23] MEDS ORDERED: OXYTOCIN DRIP 30,000 MILLIUNITS/500 ML BAG IV ONE (21:54)
[2021-10-24] MEDS: AMPICILLIN/NS 1 GM/50 ML 1 GM/50 ML BAG IV SCH ×5 (02:40→19:01)
[2021-10-24] MEDS: ERYTHROMYCIN LACTOBIONATE 250 MG in SODIUM CHLORIDE 0.9% 100 ML IV SCH ×3 (04:00→17:17)
[2021-10-24] MEDS: LACTATED RINGERS 1,000 ML IV SCH ×3 (06:30→10:56)
[2021-10-24] MEDS ORDERED: AMPICILLIN/NS 1 GM/50 ML 1 GM/50 ML BAG IV SCH (07:00)
--- NOTE | 2021-10-24 07:34 | Progress Note ---
Assessment and Plan patient breathing though ctx, desires epidural for pain management. rn to start prepping for epidural. Continue on current management, reexamine after epidural. - Patient Problems (1) PROM (premature rupture of membranes) Current Visit: Yes Status: Acute Qualifiers: PROM onset of labor timing: onset of labor within 24 hours of rupture PROM gestational age: -third trimester Qualified Code(s): O42.013 - premature rupture of membranes, onset of labor within 24 hours of rupture, third trimester Plan to address problem: GBS swab collected Administer prophylaxis antibiotics Continuous monitoring Monitor for signs and symptoms of infection (2) 34 weeks gestation of Current Visit: Yes Status: Acute Plan to address problem: betamethasone complete NICU consult done (3) labor in third trimester Current Visit: Yes Status: Acute Qualifiers: Fetus number: single or unspecified fetus Subjective - Subjective Date of service: 10/24/21 Principal diagnosis: 34.6 wks, PPROM clear fluid, >24 hours since ROM Interval history: 21yo @ 34.4wks with history of close interval (Jul 2020) presents via self accompanied by partner, Damon, with complaint of clear gush of fluids @1820p today. ROM + and SVE 3cm per dot net developer. transmission mechanic aware. Upon entering triage room, pt sitting upright in bed, cEFM in place. Pt tearful, expressing appropriate concern for well being. VSS. Cat 1 tracing, irregular mild contractions lasting 20-40 sec palpated. Affirms movement and denies vaginal bleeding, chills, fever, dysuria, chest pain, SOB, headache, vision changes, and NVD. Continued clear LOF and upon questioning, reporting mild lower abdominal cramping pain since PPROM. Last sexual intercourse ~36 hours ago. Last meal 1400 today. Plan of care including admission for PPROM until delivery, BMZ for prematurity, and antibiotic prophylaxis discussed with pt and partner. GBS swab collected. NICU at bedside consulting with parents. EDC Confirmation: 11/29/2021 Past History : 3 Term Births: 1 Premature Births: 0 Living Children: 1 Para: 1 Mult. Births: 0 Prev : 0 Prev. attempt? 0 Aborta: 1 Elect. Ab: 0 Spont. 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 Risk Factors: Smoked Tobacco Use: Never smoker Smokeless Tobacco Use: Never Counseled to Quit/Cut Down: yes Passive Smoke Exposure: no HIV High Risk Behavior: no Exercise: no Seatbelt Use: 100 % No Dietary Counseling Reason: pn yes Alcohol Use: no Drug Use: no Past Medical History Surgery (Non-weight calculator): Negative Past Surgical History Abnormal PAP: negative HERNAN Exposure: negative Infertility: negative Uterine Anomaly: negative Uterine Surgery (not C/S): negative Other Gynecologic Problems: negative Infection History Hx of STD: none HIV Risk Eval: no Hepatitis B Risk Eval: low risk Personal hx. of genital herpes: no Partner hx. of genital herpes: no Rash, Viral, or Febrile illness since last LMP? no Varicella/Chicken Pox Status: Immunized Genetic History Congenital Heart Defect: Mom: no Dad: no Reinier Disease: Mom: no Dad: no Thalassemia Mom: no Dad: no Neural Tube Defect Mom: no Dad: no Down's Syndrome Mom: no Dad: no Paul-Sachs Mom: no Dad: no Sickle Cell Disease/Trait Mom: no Dad: no Hemophilia Mom: no Dad: no Muscular Dystrophy Mom: no Dad: no Cystic Fibrosis Mom: no Dad: no Jacob Chorea Mom: no Dad: no Mental Retardation Mom: no Dad: no Fragile X Mom: no Dad: no Other Genetic/Chromosomal Disorder Mom: no Dad: no Child w/other defect Mom: no Dad: no Environmental Exposures Xray Exposure: no Medication, drug, or alcohol use since LMP: no Chemical/Other Exposure: no Exposure to Cat Liter: no Hx of Parvovirus (Fifth Disease): no Occupational Exposure to Children: none Active Medications (reviewed today): None Current Allergies (reviewed today): No known allergies Patient reports: loss of fluid, movement normal, contractions, no new complaints, no vaginal bleeding Objective - Vital Signs Vital Signs: Vital Signs - 12hr 10/23/21 10/23/21 10/23/21 19:30 19:33 19:35 Temperature Pulse Rate 100 H 97 H 103 H Respiratory Rate Blood Pressure 104/56 O2 Sat by Pulse 100 100 Oximetry 10/23/21 10/23/21 10/23/21 19:40 19:45 19:50 Temperature Pulse Rate 103 H 111 H 91 H Respiratory Rate Blood Pressure O2 Sat by Pulse 100 100 100 Oximetry 10/23/21 10/23/21 10/23/21 19:55 20:00 20:03 Temperature Pulse Rate 103 H 104 H 106 H Respiratory Rate Blood Pressure 102/52 O2 Sat by Pulse 100 100 Oximetry 10/23/21 10/23/21 10/23/21 20:05 20:10 20:15 Temperature Pulse Rate 106 H 104 H 104 H Respiratory Rate Blood Pressure O2 Sat by Pulse 100 100 100 Oximetry 10/23/21 10/23/21 10/23/21 20:20 20:25 20:30 Temperature Pulse Rate 103 H 115 H 105 H Respiratory Rate Blood Pressure O2 Sat by Pulse 99 100 99 Oximetry 10/23/21 10/23/21 10/23/21 20:33 20:35 20:40 Temperature Pulse Rate 105 H 100 H 114 H Respiratory Rate Blood Pressure 94/53 O2 Sat by Pulse 99 100 Oximetry 10/23/21 10/23/21 10/23/21 20:45 20:50 20:55 Temperature Pulse Rate 107 H 112 H 107 H Respiratory Rate Blood Pressure O2 Sat by Pulse 100 100 100 Oximetry 10/23/21 10/23/21 10/23/21 21:00 21:08 21:13 Temperature Pulse Rate 115 H 98 H 115 H Respiratory Rate Blood Pressure O2 Sat by Pulse 100 88 100 Oximetry 10/23/21 10/23/21 10/23/21 21:18 21:23 21:28 Temperature Pulse Rate 109 H 105 H 105 H Respiratory Rate Blood Pressure O2 Sat by Pulse 100 100 100 Oximetry 10/23/21 10/23/21 10/23/21 21:33 21:38 21:43 Temperature Pulse Rate 94 H 107 H 110 H Respiratory Rate Blood Pressure 108/55 O2 Sat by Pulse 100 100 100 Oximetry 10/23/21 10/23/21 10/23/21 21:48 21:53 21:58 Temperature Pulse Rate 110 H 114 H 110 H Respiratory Rate Blood Pressure O2 Sat by Pulse 100 100 100 Oximetry 10/23/21 10/23/21 10/23/21 22:03 22:08 22:13 Temperature Pulse Rate 106 H 114 H 113 H Respiratory Rate Blood Pressure 110/73 O2 Sat by Pulse 100 99 99 Oximetry 10/23/21 10/23/21 10/23/21 22:18 22:23 22:28 Temperature Pulse Rate 110 H 105 H 110 H Respiratory Rate Blood Pressure O2 Sat by Pulse 100 99 99 Oximetry 10/23/21 10/23/21 10/23/21 22:33 22:38 22:43 Temperature Pulse Rate 108 H 101 H 96 H Respiratory Rate Blood Pressure 81/39 104/59 O2 Sat by Pulse 99 100 100 Oximetry 10/23/21 10/23/21 10/23/21 22:48 22:53 22:58 Temperature Pulse Rate 100 H 95 H 102 H Respiratory Rate Blood Pressure O2 Sat by Pulse 100 100 100 Oximetry 10/23/21 10/23/21 10/23/21 23:03 23:06 23:11 Temperature Pulse Rate 99 H 97 H 97 H Respiratory Rate Blood Pressure 102/53 O2 Sat by Pulse 100 100 100 Oximetry 10/23/21 10/23/21 10/23/21 23:16 23:21 23:26 Temperature Pulse Rate 98 H 99 H 98 H Respiratory Rate Blood Pressure O2 Sat by Pulse 100 100 100 Oximetry 10/23/21 10/23/21 10/23/21 23:31 23:36 23:38 Temperature Pulse Rate 99 H 103 H 96 H Respiratory Rate Blood Pressure 94/55 O2 Sat by Pulse 100 100 Oximetry 10/23/21 10/23/21 10/23/21 23:46 23:51 23:56 Temperature Pulse Rate 82 98 H 99 H Respiratory Rate Blood Pressure O2 Sat by Pulse 78 L 100 100 Oximetry 10/24/21 10/24/21 10/24/21 00:01 00:06 00:07 Temperature Pulse Rate 98 H 97 H 107 H Respiratory Rate Blood Pressure 106/66 O2 Sat by Pulse 100 100 Oximetry 10/24/21 10/24/21 10/24/21 00:12 00:16 00:21 Temperature Pulse Rate 117 H 108 H 102 H Respiratory Rate Blood Pressure O2 Sat by Pulse 99 100 100 Oximetry 10/24/21 10/24/21 10/24/21 00:26 00:31 00:36 Temperature Pulse Rate 97 H 100 H 92 H Respiratory Rate Blood Pressure O2 Sat by Pulse 100 100 98 Oximetry 10/24/21 10/24/21 10/24/21 00:41 00:46 00:51 Temperature Pulse Rate 99 H 99 H 97 H Respiratory Rate Blood Pressure O2 Sat by Pulse 98 98 98 Oximetry 10/24/21 10/24/21 10/24/21 00:56 01:01 01:06 Temperature Pulse Rate 109 H 103 H 98 H Respiratory Rate Blood Pressure O2 Sat by Pulse 99 100 99 Oximetry 10/24/21 10/24/21 10/24/21 01:11 01:16 01:21 Temperature Pulse Rate 94 H 97 H 92 H Respiratory Rate Blood Pressure O2 Sat by Pulse 98 98 97 Oximetry 10/24/21 10/24/21 10/24/21 01:26 01:30 01:31 Temperature Pulse Rate 86 107 H 88 Respiratory Rate Blood Pressure 99/57 O2 Sat by Pulse 96 98 Oximetry 10/24/21 10/24/21 10/24/21 01:36 01:41 01:46 Temperature Pulse Rate 96 H 92 H 92 H Respiratory Rate Blood Pressure O2 Sat by Pulse 97 96 96 Oximetry 10/24/21 10/24/21 10/24/21 01:51 01:56 02:00 Temperature Pulse Rate 94 H 95 H 86 Respiratory Rate Blood Pressure 100/60 O2 Sat by Pulse 96 96 Oximetry 10/24/21 10/24/21 10/24/21 02:01 02:06 02:11 Temperature Pulse Rate 100 H 89 93 H Respiratory Rate Blood Pressure O2 Sat by Pulse 99 97 96 Oximetry 10/24/21 10/24/21 10/24/21 02:16 02:21 02:33 Temperature Pulse Rate 87 101 H 56 L Respiratory Rate Blood Pressure O2 Sat by Pulse 97 96 83 L Oximetry 10/24/21 10/24/21 10/24/21 02:38 02:43 02:48 Temperature Pulse Rate 98 H 90 92 H Respiratory Rate Blood Pressure O2 Sat by Pulse 100 100 100 Oximetry 10/24/21 10/24/21 10/24/21 02:52 02:57 03:02 Temperature Pulse Rate 94 H 94 H 104 H Respiratory Rate Blood Pressure O2 Sat by Pulse 100 100 100 Oximetry 10/24/21 10/24/21 10/24/21 03:03 03:07 03:12 Temperature Pulse Rate 99 H 104 H 111 H Respiratory Rate Blood Pressure 109/55 O2 Sat by Pulse 100 100 Oximetry 10/24/21 10/24/21 10/24/21 03:17 03:22 03:27 Temperature Pulse Rate 97 H 100 H 104 H Respiratory Rate Blood Pressure O2 Sat by Pulse 100 100 100 Oximetry 10/24/21 10/24/21 10/24/21 03:32 03:33 03:37 Temperature Pulse Rate 109 H 106 H 103 H Respiratory Rate Blood Pressure 106/61 O2 Sat by Pulse 100 100 Oximetry 10/24/21 10/24/21 10/24/21 03:42 03:47 03:52 Temperature Pulse Rate 110 H 103 H 104 H Respiratory Rate Blood Pressure O2 Sat by Pulse 99 100 100 Oximetry 10/24/21 10/24/21 10/24/21 03:57 04:02 04:07 Temperature Pulse Rate 107 H 108 H 92 H Respiratory Rate Blood Pressure 107/62 O2 Sat by Pulse 100 100 100 Oximetry 10/24/21 10/24/21 10/24/21 04:12 04:17 04:28 Temperature Pulse Rate 98 H 94 H Respiratory Rate Blood Pressure O2 Sat by Pulse 100 99 70 L Oximetry 10/24/21 10/24/21 10/24/21 04:29 04:32 04:34 Temperature Pulse Rate 116 H 84 100 H Respiratory Rate Blood Pressure 105/60 O2 Sat by Pulse 93 100 Oximetry 10/24/21 10/24/21 10/24/21 04:39 04:40 04:44 Temperature Pulse Rate 97 H 99 H 94 H Respiratory Rate Blood Pressure O2 Sat by Pulse 97 89 100 Oximetry 10/24/21 10/24/21 10/24/21 04:49 04:54 04:59 Temperature Pulse Rate 88 102 H 82 Respiratory Rate Blood Pressure O2 Sat by Pulse 100 100 100 Oximetry 10/24/21 10/24/21 10/24/21 05:03 05:04 05:09 Temperature Pulse Rate 91 H 92 H 97 H Respiratory Rate Blood Pressure 96/55 O2 Sat by Pulse 100 99 Oximetry 10/24/21 10/24/2122 05:14 05:19 05:24 Temperature Pulse Rate 88 92 H 105 H Respiratory Rate Blood Pressure O2 Sat by Pulse 100 100 98 Oximetry 10/24/21 10/24/21 10/24/21 05:29 05:33 05:34 Temperature Pulse Rate 91 H 88 90 Respiratory Rate Blood Pressure 90/54 O2 Sat by Pulse 100 100 Oximetry 10/24/21 10/24/21 10/24/21 05:39 05:44 05:56 Temperature Pulse Rate 96 H 94 H 42 L Respiratory Rate Blood Pressure O2 Sat by Pulse 99 98 77 L Oximetry 10/24/21 10/24/21 10/24/21 06:01 06:03 06:06 Temperature Pulse Rate 87 86 103 H Respiratory Rate Blood Pressure 101/58 O2 Sat by Pulse 100 100 Oximetry 10/24/21 10/24/21 10/24/21 06:11 06:16 06:21 Temperature Pulse Rate 86 96 H 94 H Respiratory Rate Blood Pressure O2 Sat by Pulse 100 100 100 Oximetry 10/24/21 10/24/21 10/24/21 06:26 06:31 06:33 Temperature Pulse Rate 95 H 85 81 Respiratory Rate Blood Pressure 103/63 O2 Sat by Pulse 100 100 Oximetry 10/24/21 10/24/21 10/24/21 06:36 06:41 06:45 Temperature Pulse Rate 84 107 H 101 H Respiratory Rate Blood Pressure O2 Sat by Pulse 100 100 90 Oximetry 10/24/21 10/24/21 10/24/21 06:47 06:52 06:57 Temperature Pulse Rate 89 82 101 H Respiratory Rate Blood Pressure O2 Sat by Pulse 100 100 100 Oximetry 10/24/21 10/24/21 10/24/21 07:02 07:07 07:12 Temperature Pulse Rate 78 99 H 75 Respiratory Rate Blood Pressure 110/65 O2 Sat by Pulse 98 100 100 Oximetry 10/24/21 10/24/21 10/24/21 07:17 07:21 07:22 Temperature 98.4 F Pulse Rate 99 H 85 Respiratory 20 Rate Blood Pressure O2 Sat by Pulse 100 100 Oximetry - Exam Breasts: normal Cardiovascular: Regular rate Lungs: Normal air movement Abdomen: Present: normal appearance, soft Vulva: both: normal Uterus: Present: normal, fundal height above umbilicus FHR: category 1 Uterine Contraction Monitor Mode: External Uterine Contraction Pattern: Regular Uterine Tone Measurement Phase: Contraction Uterine Contraction Intensity: Mild Extremities: normal Deep Tendon Reflex Grade: Normal +2 - Labs Labs: Abnormal Labs 10/22/21 21:50 WBC 13.3 H Hgb 8.7 L Hct 27.9 L MCV 75 L MCH 23 L Seg Neutrophils % 73.4 H Seg Neutrophils # 9.8 H Laboratory Results - last 24 hr 10/23/21 Unknown SARS-CoV-2 (PCR) Negative
[2021-10-24] MEDS ORDERED: NalbUPHINE 10 MG/1 ML INJ IV PRN (09:34)
[2021-10-24] MEDS ORDERED: NALOXONE 2 MG/2 ML INJ IV PRN (09:34)
[2021-10-24] MEDS ORDERED: ePHEDrine SULFATE 50 MG/1 ML INJ IV PRN (09:34)
[2021-10-24] MEDS ORDERED: diphenhydrAMINE 50 MG/ML VIAL IV PRN (09:34)
[2021-10-24] MEDS ORDERED: BUPIVACAINE/PF (0.25%) 2.5 MG/ML 10 ML VIAL INFILTRATI ONE ×3 (09:41→18:00)
[2021-10-24] MEDS: ePHEDrine SULFATE 50 MG/1 ML INJ IV PRN ×2 (10:12→10:14)
--- NOTE | 2021-10-24 10:17 | Anesthesia Consultation ---
Anesthesia Consult and Med Hx Date of service: 10/24/21 - Airway Anesthetic Teeth Evaluation: Good ROM Head & Neck: Adequate Mental/Hyoid Distance: Adequate Mallampati Class: Class I Intubation Access Assessment: Good - Pulmonary Exam CTA: Yes - Cardiac Exam Cardiac Exam: RRR - Pre-Operative Health Status ASA Pre-Surgery Classification: ASA2 Proposed Anesthetic Plan: Epidural - Pulmonary Hx Asthma: No COPD: No Hx Pneumonia: No - Cardiovascular System Hx Hypertension: No - Central Nervous System Hx Seizures: Yes (2016, 2017) Hx Psychiatric Problems: No - Endocrine Hx Renal Disease: No Hx End Stage Renal Disease: No Hx Hypothyroidism: No Hx Hyperthyroidism: No - Hematic Hx Anemia: Yes Hx Sickle Cell Disease: No - Other Systems Hx Alcohol Use: No
--- NOTE | 2021-10-24 10:20 | Progress Note ---
Labor Epidural - Labor Epidural Start Time: 09:49 Stop Time: 09:54 Performed by:: ELIZABETH MARQUIS Procedure: Patient is requesting epidural for labor and pain. H&P, labs were reviewed. Patient IDed, all questions and concerns were answered, and consent was signed. Timeout was performed at bedside. Patient in sitting position. Sterile prep and drape was performed. 3ml of 1% lidocaine skin wheal at L[3]- L [4]. 17- gauge Tuohy epidural needle was advanced to loss of resistance with air technique 6cm. Negative CSF negative blood. Epidural catheter advanced to [12] centimeters. [negative] Aspiration [negative] test dose. Sterile dressing applied. Patient tolerated procedure.
[2021-10-24] MEDS: fentaNYL-BUPIV 2 MCG/ML-0.125% 200 MCG/100 ML BAG EPIDURAL SCH ×2 (10:49→17:34)
--- NOTE | 2021-10-24 16:37 | Progress Note ---
Assessment and Plan Patient having pain with ctx + bloody show SVE now /0 Anticipate - Patient Problems (1) PROM (premature rupture of membranes) Current Visit: Yes Status: Acute Qualifiers: PROM onset of labor timing: onset of labor within 24 hours of rupture PROM gestational age: -third trimester Qualified Code(s): O42.013 - premature rupture of membranes, onset of labor within 24 hours of rupture, third trimester (2) 34 weeks gestation of Current Visit: Yes Status: Acute (3) labor in third trimester Current Visit: Yes Status: Acute Qualifiers: Fetus number: single or unspecified fetus Subjective - Subjective Date of service: 10/24/21 Principal diagnosis: 34.6 wks, PPROM clear fluid, >24 hours since ROM Interval history: 21yo @ 34.4wks with history of close interval (Jul 2020) presents via self accompanied by partner, Damon, with complaint of clear gush of fluids @1820p today. ROM + and SVE 3cm per rifle case repairer. outpatient scheduler aware. Upon entering triage room, pt sitting upright in bed, cEFM in place. Pt tearful, expressing appropriate concern for well being. VSS. Cat 1 tracing, irregular mild contractions lasting 20-40 sec palpated. Affirms movement and denies vaginal bleeding, chills, fever, dysuria, chest pain, SOB, headache, vision changes, and NVD. Continued clear LOF and upon questioning, reporting mild lower abdominal cramping pain since PPROM. Last sexual intercourse ~36 hours ago. Last meal 1400 today. Plan of care including admission for PPROM until delivery, BMZ for prematurity, and antibiotic prophylaxis discussed with pt and partner. GBS swab collected. NICU at bedside consulting with parents. EDC Confirmation: 11/29/2021 Past History : 3 Term Births: 1 Premature Births: 0 Living Children: 1 Para: 1 Mult. Births: 0 Prev : 0 Prev. attempt? 0 Aborta: 1 Elect. Ab: 0 Spont. 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 Risk Factors: Smoked Tobacco Use: Never smoker Smokeless Tobacco Use: Never Counseled to Quit/Cut Down: yes Passive Smoke Exposure: no HIV High Risk Behavior: no Exercise: no Seatbelt Use: 100 % No Dietary Counseling Reason: pn yes Alcohol Use: no Drug Use: no Past Medical History Surgery (Non-manufacturing advisor): Negative Past Surgical History Abnormal PAP: negative HERNAN Exposure: negative Infertility: negative Uterine Anomaly: negative Uterine Surgery (not C/S): negative Other Gynecologic Problems: negative Infection History Hx of STD: none HIV Risk Eval: no Hepatitis B Risk Eval: low risk Personal hx. of genital herpes: no Partner hx. of genital herpes: no Rash, Viral, or Febrile illness since last LMP? no Varicella/Chicken Pox Status: Immunized Genetic History Congenital Heart Defect: Mom: no Dad: no Reinier Disease: Mom: no Dad: no Thalassemia Mom: no Dad: no Neural Tube Defect Mom: no Dad: no Down's Syndrome Mom: no Dad: no Paul-Sachs Mom: no Dad: no Sickle Cell Disease/Trait Mom: no Dad: no Hemophilia Mom: no Dad: no Muscular Dystrophy Mom: no Dad: no Cystic Fibrosis Mom: no Dad: no Jacob Chorea Mom: no Dad: no Mental Retardation Mom: no Dad: no Fragile X Mom: no Dad: no Other Genetic/Chromosomal Disorder Mom: no Dad: no Child w/other defect Mom: no Dad: no Environmental Exposures Xray Exposure: no Medication, drug, or alcohol use since LMP: no Chemical/Other Exposure: no Exposure to Cat Liter: no Hx of Parvovirus (Fifth Disease): no Occupational Exposure to Children: none Active Medications (reviewed today): None Current Allergies (reviewed today): No known allergies Patient reports: loss of fluid, movement normal, contractions, no new complaints, no vaginal bleeding Objective - Vital Signs Vital Signs: Vital Signs - 12hr 10/24/21 10/24/21 10/24/21 04:39 04:40 04:44 Temperature Pulse Rate 97 H 99 H 94 H Respiratory Rate Blood Pressure O2 Sat by Pulse 97 89 100 Oximetry O2 Sat by Pulse Oximetry [ Bilateral] 10/24/21 10/24/21 10/24/21 04:49 04:54 04:59 Temperature Pulse Rate 88 102 H 82 Respiratory Rate Blood Pressure O2 Sat by Pulse 100 100 100 Oximetry O2 Sat by Pulse Oximetry [ Bilateral] 10/24/21 10/24/21 10/24/21 05:03 05:04 05:09 Temperature Pulse Rate 91 H 92 H 97 H Respiratory Rate Blood Pressure 96/55 O2 Sat by Pulse 100 99 Oximetry O2 Sat by Pulse Oximetry [ Bilateral] 10/24/21 10/24/21 10/24/21 05:14 05:19 05:24 Temperature Pulse Rate 88 92 H 105 H Respiratory Rate Blood Pressure O2 Sat by Pulse 100 100 98 Oximetry O2 Sat by Pulse Oximetry [ Bilateral] 10/24/21 10/24/21 10/24/21 05:29 05:33 05:34 Temperature Pulse Rate 91 H 88 90 Respiratory Rate Blood Pressure 90/54 O2 Sat by Pulse 100 100 Oximetry O2 Sat by Pulse Oximetry [ Bilateral] 10/24/21 10/24/21 10/24/21 05:39 05:44 05:56 Temperature Pulse Rate 96 H 94 H 42 L Respiratory Rate Blood Pressure O2 Sat by Pulse 99 98 77 L Oximetry O2 Sat by Pulse Oximetry [ Bilateral] 10/24/21 10/24/21 10/24/21 06:01 06:03 06:06 Temperature Pulse Rate 87 86 103 H Respiratory Rate Blood Pressure 101/58 O2 Sat by Pulse 100 100 Oximetry O2 Sat by Pulse Oximetry [ Bilateral] 10/24/21 10/24/21 10/24/21 06:11 06:16 06:21 Temperature Pulse Rate 86 96 H 94 H Respiratory Rate Blood Pressure O2 Sat by Pulse 100 100 100 Oximetry O2 Sat by Pulse Oximetry [ Bilateral] 10/24/21 10/24/21 10/24/21 06:26 06:31 06:33 Temperature Pulse Rate 95 H 85 81 Respiratory Rate Blood Pressure 103/63 O2 Sat by Pulse 100 100 Oximetry O2 Sat by Pulse Oximetry [ Bilateral] 10/24/21 10/24/21 10/24/21 06:36 06:41 06:45 Temperature Pulse Rate 84 107 H 101 H Respiratory Rate Blood Pressure O2 Sat by Pulse 100 100 90 Oximetry O2 Sat by Pulse Oximetry [ Bilateral] 10/24/21 10/24/21 10/24/21 06:47 06:52 06:57 Temperature Pulse Rate 89 82 101 H Respiratory Rate Blood Pressure O2 Sat by Pulse 100 100 100 Oximetry O2 Sat by Pulse Oximetry [ Bilateral] 10/24/21 10/24/21 10/24/21 07:02 07:07 07:12 Temperature Pulse Rate 78 99 H 75 Respiratory Rate Blood Pressure 110/65 O2 Sat by Pulse 98 100 100 Oximetry O2 Sat by Pulse Oximetry [ Bilateral] 10/24/21 10/24/21 10/24/21 07:17 07:21 07:22 Temperature 98.4 F Pulse Rate 99 H 85 Respiratory 20 Rate Blood Pressure O2 Sat by Pulse 100 100 Oximetry O2 Sat by Pulse Oximetry [ Bilateral] 10/24/21 10/24/21 10/24/21 07:24 07:27 07:32 Temperature Pulse Rate 105 H 91 H Respiratory Rate Blood Pressure 103/56 O2 Sat by Pulse 100 100 Oximetry O2 Sat by Pulse 100 Oximetry [ Bilateral] 10/24/21 10/24/21 10/24/21 07:37 07:42 07:47 Temperature Pulse Rate 95 H 94 H 89 Respiratory Rate Blood Pressure O2 Sat by Pulse 100 100 99 Oximetry O2 Sat by Pulse Oximetry [ Bilateral] 10/24/21 10/24/21 10/24/21 07:52 07:57 08:02 Temperature Pulse Rate 88 90 97 H Respiratory Rate Blood Pressure O2 Sat by Pulse 98 99 98 Oximetry O2 Sat by Pulse Oximetry [ Bilateral] 10/24/21 10/24/21 10/24/21 08:03 08:07 08:12 Temperature Pulse Rate 91 H 92 H 101 H Respiratory Rate Blood Pressure 105/57 O2 Sat by Pulse 98 99 Oximetry O2 Sat by Pulse Oximetry [ Bilateral] 10/24/21 10/24/21 10/24/21 08:17 08:22 08:27 Temperature Pulse Rate 93 H 96 H 93 H Respiratory Rate Blood Pressure O2 Sat by Pulse 99 99 99 Oximetry O2 Sat by Pulse Oximetry [ Bilateral] 10/24/21 10/24/21 10/24/21 08:32 08:34 08:37 Temperature Pulse Rate 118 H 93 H 94 H Respiratory Rate Blood Pressure 108/58 O2 Sat by Pulse 98 99 Oximetry O2 Sat by Pulse Oximetry [ Bilateral] 10/24/21 10/24/21 10/24/21 08:42 08:47 08:52 Temperature Pulse Rate 95 H 100 H 109 H Respiratory Rate Blood Pressure O2 Sat by Pulse 99 99 100 Oximetry O2 Sat by Pulse Oximetry [ Bilateral] 10/24/21 10/24/21 10/24/21 09:05 09:06 09:11 Temperature Pulse Rate 54 L 97 H 96 H Respiratory Rate Blood Pressure O2 Sat by Pulse 60 L 100 100 Oximetry O2 Sat by Pulse Oximetry [ Bilateral] 10/24/21 10/24/21 10/24/21 09:15 09:16 09:21 Temperature Pulse Rate 109 H 104 H 106 H Respiratory Rate Blood Pressure O2 Sat by Pulse 84 95 100 Oximetry O2 Sat by Pulse Oximetry [ Bilateral] 10/24/21 10/24/21 10/24/21 09:26 09:31 09:32 Temperature Pulse Rate 119 H 114 H 100 H Respiratory Rate Blood Pressure 107/56 O2 Sat by Pulse 100 98 93 Oximetry O2 Sat by Pulse Oximetry [ Bilateral] 10/24/21 10/24/21 10/24/21 09:36 09:41 09:42 Temperature Pulse Rate 98 H 107 H 117 H Respiratory Rate Blood Pressure O2 Sat by Pulse 100 100 86 Oximetry O2 Sat by Pulse Oximetry [ Bilateral] 10/24/21 10/24/21 10/24/21 09:46 09:51 09:54 Temperature Pulse Rate 95 H 98 H 104 H Respiratory Rate Blood Pressure 103/58 O2 Sat by Pulse 100 100 85 Oximetry O2 Sat by Pulse Oximetry [ Bilateral] 10/24/21 10/24/21 10/24/21 09:56 10:01 10:02 Temperature Pulse Rate 109 H 91 H 122 H Respiratory Rate Blood Pressure 99/54 O2 Sat by Pulse 100 100 Oximetry O2 Sat by Pulse Oximetry [ Bilateral] 10/24/21 10/24/21 10/24/21 10:04 10:06 10:08 Temperature Pulse Rate 98 H 111 H 114 H Respiratory Rate Blood Pressure 98/56 101/55 110/63 O2 Sat by Pulse 100 Oximetry O2 Sat by Pulse Oximetry [ Bilateral] 10/24/21 10/24/21 10/24/21 10:10 10:12 10:14 Temperature Pulse Rate 76 88 82 Respiratory Rate Blood Pressure 97/51 97/55 99/53 O2 Sat by Pulse Oximetry O2 Sat by Pulse Oximetry [ Bilateral] 10/24/21 10/24/21 10/24/21 10:16 10:18 10:19 Temperature Pulse Rate 80 93 H 104 H Respiratory Rate Blood Pressure 111/58 123/61 O2 Sat by Pulse 100 Oximetry O2 Sat by Pulse Oximetry [ Bilateral] 10/24/21 10/24/21 10/24/21 10:20 10:22 10:24 Temperature Pulse Rate 105 H 74 91 H Respiratory Rate Blood Pressure 135/82 112/56 116/58 O2 Sat by Pulse 100 Oximetry O2 Sat by Pulse Oximetry [ Bilateral] 10/24/21 10/24/21 10/24/21 10:26 10:28 10:29 Temperature Pulse Rate 79 86 82 Respiratory Rate Blood Pressure 116/56 118/58 O2 Sat by Pulse 100 Oximetry O2 Sat by Pulse Oximetry [ Bilateral] 10/24/21 10/24/21 10/24/21 10:30 10:32 10:34 Temperature Pulse Rate 85 86 85 Respiratory Rate Blood Pressure 110/55 116/59 112/57 O2 Sat by Pulse 100 Oximetry O2 Sat by Pulse Oximetry [ Bilateral] 10/24/21 10/24/21 10/24/21 10:36 10:38 10:39 Temperature Pulse Rate 79 88 82 Respiratory Rate Blood Pressure 115/58 111/55 O2 Sat by Pulse 100 Oximetry O2 Sat by Pulse Oximetry [ Bilateral] 10/24/21 10/24/21 10/24/21 10:44 10:49 10:54 Temperature Pulse Rate 80 90 105 H Respiratory Rate Blood Pressure 112/59 O2 Sat by Pulse 100 100 100 Oximetry O2 Sat by Pulse Oximetry [ Bilateral] 10/24/21 10/24/21 10/24/21 10:59 11:04 11:05 Temperature 98.5 F Pulse Rate 87 98 H Respiratory 18 Rate Blood Pressure O2 Sat by Pulse 100 100 Oximetry O2 Sat by Pulse Oximetry [ Bilateral] 10/24/21 10/24/21 10/24/21 11:08 11:09 11:14 Temperature Pulse Rate 85 92 H 93 H Respiratory Rate Blood Pressure 108/57 O2 Sat by Pulse 99 99 Oximetry O2 Sat by Pulse Oximetry [ Bilateral] 10/24/21 10/24/21 10/24/21 11:19 11:23 11:24 Temperature Pulse Rate 98 H 100 H 98 H Respiratory Rate Blood Pressure 102/58 O2 Sat by Pulse 99 98 Oximetry O2 Sat by Pulse Oximetry [ Bilateral] 10/24/21 10/24/21 10/24/21 11:29 11:34 11:38 Temperature Pulse Rate 98 H 99 H 112 H Respiratory Rate Blood Pressure 96/53 O2 Sat by Pulse 98 98 Oximetry O2 Sat by Pulse Oximetry [ Bilateral] 10/24/21 10/24/21 10/24/21 11:39 11:44 11:49 Temperature Pulse Rate 100 H 97 H 99 H Respiratory Rate Blood Pressure O2 Sat by Pulse 99 98 99 Oximetry O2 Sat by Pulse Oximetry [ Bilateral] 10/24/21 10/24/21 10/24/21 11:54 11:59 12:04 Temperature Pulse Rate 101 H 96 H 95 H Respiratory Rate Blood Pressure 96/55 O2 Sat by Pulse 99 99 99 Oximetry O2 Sat by Pulse Oximetry [ Bilateral] 10/24/21 10/24/21 10/24/21 12:08 12:09 12:14 Temperature Pulse Rate 100 H 92 H 94 H Respiratory Rate Blood Pressure 99/54 O2 Sat by Pulse 99 99 Oximetry O2 Sat by Pulse Oximetry [ Bilateral] 10/24/21 10/24/21 10/24/21 12:19 12:24 12:29 Temperature Pulse Rate 92 H 101 H 92 H Respiratory Rate Blood Pressure 97/53 O2 Sat by Pulse 99 99 99 Oximetry O2 Sat by Pulse Oximetry [ Bilateral] 10/24/21 10/24/21 10/24/21 12:34 12:39 12:44 Temperature Pulse Rate 100 H 117 H 103 H Respiratory Rate Blood Pressure 102/59 O2 Sat by Pulse 99 99 100 Oximetry O2 Sat by Pulse Oximetry [ Bilateral] 10/24/21 10/24/21 10/24/21 12:45 12:49 12:54 Temperature 98.5 F Pulse Rate 109 H 110 H Respiratory 19 Rate Blood Pressure O2 Sat by Pulse 100 99 Oximetry O2 Sat by Pulse Oximetry [ Bilateral] 10/24/21 10/24/21 10/24/21 12:56 12:59 13:04 Temperature Pulse Rate 96 H 106 H 99 H Respiratory Rate Blood Pressure 102/58 O2 Sat by Pulse 100 99 Oximetry O2 Sat by Pulse Oximetry [ Bilateral] 10/24/21 10/24/21 10/24/21 13:08 13:09 13:14 Temperature Pulse Rate 102 H 103 H 106 H Respiratory Rate Blood Pressure 95/53 O2 Sat by Pulse 100 100 Oximetry O2 Sat by Pulse Oximetry [ Bilateral] 10/24/21 10/24/21 10/24/21 13:19 13:23 13:24 Temperature Pulse Rate 102 H 103 H 97 H Respiratory Rate Blood Pressure 98/53 O2 Sat by Pulse 100 100 Oximetry O2 Sat by Pulse Oximetry [ Bilateral] 10/24/21 10/24/21 10/24/21 13:29 13:34 13:39 Temperature Pulse Rate 95 H 101 H 99 H Respiratory Rate Blood Pressure 103/57 O2 Sat by Pulse 99 99 99 Oximetry O2 Sat by Pulse Oximetry [ Bilateral] 10/24/21 10/24/21 10/24/21 13:44 13:49 13:53 Temperature Pulse Rate 103 H 112 H 85 Respiratory Rate Blood Pressure 103/57 O2 Sat by Pulse 99 100 Oximetry O2 Sat by Pulse Oximetry [ Bilateral] 10/24/21 10/24/21 10/24/21 13:54 13:59 14:04 Temperature Pulse Rate 95 H 91 H 87 Respiratory Rate Blood Pressure O2 Sat by Pulse 100 100 100 Oximetry O2 Sat by Pulse Oximetry [ Bilateral] 10/24/21 10/24/21 10/24/21 14:09 14:14 14:19 Temperature Pulse Rate 103 H 88 95 H Respiratory Rate Blood Pressure 102/54 O2 Sat by Pulse 100 99 100 Oximetry O2 Sat by Pulse Oximetry [ Bilateral] 10/24/21 10/24/21 10/24/21 14:24 14:29 14:34 Temperature Pulse Rate 88 103 H 89 Respiratory Rate Blood Pressure 109/55 O2 Sat by Pulse 99 98 100 Oximetry O2 Sat by Pulse Oximetry [ Bilateral] 10/24/21 10/24/21 10/24/21 14:39 14:40 14:44 Temperature Pulse Rate 98 H 93 H 91 H Respiratory Rate Blood Pressure 103/60 O2 Sat by Pulse 100 100 Oximetry O2 Sat by Pulse Oximetry [ Bilateral] 10/24/21 10/24/21 10/24/21 14:49 14:50 14:53 Temperature 98 F Pulse Rate 88 97 H Respiratory 19 Rate Blood Pressure 101/57 O2 Sat by Pulse 100 Oximetry O2 Sat by Pulse Oximetry [ Bilateral] 10/24/21 10/24/21 10/24/21 14:54 14:59 15:04 Temperature Pulse Rate 98 H 85 84 Respiratory Rate Blood Pressure O2 Sat by Pulse 100 100 100 Oximetry O2 Sat by Pulse Oximetry [ Bilateral] 10/24/21 10/24/21 10/24/21 15:08 15:09 15:14 Temperature Pulse Rate 78 85 80 Respiratory Rate Blood Pressure 90/50 O2 Sat by Pulse 100 100 Oximetry O2 Sat by Pulse Oximetry [ Bilateral] 10/24/21 10/24/21 10/24/21 15:19 15:24 15:29 Temperature Pulse Rate 81 81 82 Respiratory Rate Blood Pressure 92/50 O2 Sat by Pulse 100 100 100 Oximetry O2 Sat by Pulse Oximetry [ Bilateral] 10/24/21 10/24/21 10/24/21 15:34 15:38 15:39 Temperature Pulse Rate 81 86 103 H Respiratory Rate Blood Pressure 90/53 O2 Sat by Pulse 100 100 Oximetry O2 Sat by Pulse Oximetry [ Bilateral] 10/24/21 10/24/21 10/24/21 15:44 15:49 15:53 Temperature Pulse Rate 88 85 90 Respiratory Rate Blood Pressure 92/53 O2 Sat by Pulse 100 100 Oximetry O2 Sat by Pulse Oximetry [ Bilateral] 10/24/21 10/24/21 10/24/21 15:54 15:58 15:59 Temperature Pulse Rate 90 103 H 82 Respiratory Rate Blood Pressure O2 Sat by Pulse 100 91 100 Oximetry O2 Sat by Pulse Oximetry [ Bilateral] 10/24/21 10/24/21 10/24/21 16:04 16:09 16:14 Temperature Pulse Rate 108 H 83 104 H Respiratory Rate Blood Pressure 101/58 O2 Sat by Pulse 100 100 100 Oximetry O2 Sat by Pulse Oximetry [ Bilateral] 10/24/21 10/24/21 10/24/21 16:19 16:24 16:25 Temperature Pulse Rate 81 86 82 Respiratory Rate Blood Pressure 102/62 O2 Sat by Pulse 100 100 Oximetry O2 Sat by Pulse Oximetry [ Bilateral] 10/24/21 16:29 Temperature Pulse Rate 83 Respiratory Rate Blood Pressure O2 Sat by Pulse 100 Oximetry O2 Sat by Pulse Oximetry [ Bilateral] - Exam Cardiovascular: Regular rate Lungs: Normal air movement Abdomen: Present: normal appearance, soft Vulva: both: normal Uterus: Present: normal, fundal height above umbilicus FHR: category 1 Uterine Contraction Monitor Mode: External Cervical Dilatation: 6 Cervical Effacement Percentage: 80 station: 0 Uterine Contraction Frequency (min): 2-3 Uterine Contraction Duration: 60 Uterine Contraction Pattern: Regular Uterine Tone Measurement Phase: Contraction Uterine Contraction Intensity: Strong/Firm Extremities: normal - Labs Labs: Abnormal Labs 10/22/21 21:50 WBC 13.3 H Hgb 8.7 L Hct 27.9 L MCV 75 L MCH 23 L Seg Neutrophils % 73.4 H Seg Neutrophils # 9.8 H
--- NOTE | 2021-10-24 19:55 | Procedure Note ---
OB Delivery Note - Delivery Date of Delivery: 10/24/21 Electrical High Tension Tester: JESSICA TAVAREZ Estimated blood loss: 200cc - Vaginal Delivery presentation: vertex Delivery position: OA Intrapartum events: PROM->1hr before delivery Delivery induction: oxytocin Delivery augmentation: pitocin Delivery monitor: external FHT, external uterine Route of delivery: Delivery placenta: spontaneous Delivery cord: 3 umbilical vessels Episiotomy: none Delivery laceration: none Anesthesia: epidural Delivery comments: CNM and RN to bedside. FHT's with late decelerations and prolonged decel x5 minutes down to 60's bpm. Pt with significant bloody show and clots, SVE complete/+1 station. Pushing initiated and Dr. Caicedo requested to be called to bedside. Positioned changed RL and LL, Oxygen 10L via mask given, Pitocin off, and IV LR fluid bolus initiated. Dr. Grey to bedside for delivery assistance. Viable female infant delivered spontaneously over intact perineum. SVEN present. Apgars 8,9; Weight 4lbs 13 oz. Cord blood collected. Placenta delivered spontaneously and intact. Sent to pathology for PPROM @34wks. Perineum intact. Fundus firm below umbilicus with scant lochia. Pitocin IV and Cytotec 800mcg IL given prophylactically for low starting H&H. EBL 200mL. Dr Caicedo made aware. All counts correct. Mother and baby remain LDR stable. - Infant A at 1 minute: 8 at 5 minutes: 9 Gender: Female (4lbs 13oz)
[2021-10-25] MEDS ORDERED: oxyCODONE /ACETAMINOPHEN 5-325MG TAB PO PRN (00:46)
[2021-10-25] MEDS ORDERED: ACETAMINOPHEN 325 MG TAB PO PRN (00:46)
[2021-10-25] MEDS ORDERED: PROMETHAZINE 25 MG TAB PO PRN (00:46)
[2021-10-25] MEDS ORDERED: HYDROCORTISONE 25 MG RECTAL SUPP PR PRN (00:46)
[2021-10-25] MEDS ORDERED: diphenhydrAMINE 25 MG CAP PO PRN (00:46)
[2021-10-25] MEDS ORDERED: MAGNESIUM HYDROXIDE (MOM) ORAL LIQD UDC PO PRN (00:46)
[2021-10-25] MEDS ORDERED: PROMETHAZINE 25 MG RECT SUPP PR PRN (00:46)
[2021-10-25] MEDS ORDERED: LANOLIN/ZINC/DIMETHICONE (LANSINOH) 7 GM TP PRN (00:46)
[2021-10-25] MEDS ORDERED: ONDANSETRON 4 MG/2 ML INJ IV PRN (00:46)
[2021-10-25] MEDS ORDERED: WITCH HAZEL/ GLYCERIN PAD TP PRN (00:46)
[2021-10-25] MEDS ORDERED: SENNOSIDES/DOCUSATE SODIUM 8.6/50 MG TAB PO SCH (00:46)
[2021-10-25] MEDS ORDERED: BENZOCAINE/MENTHOL 20/0.5% TOP SPRAY 56 GM TP PRN (00:46)
[2021-10-25] MEDS ORDERED: OXYTOCIN DRIP 30 UNITS/500 ML BAG IV SCH (00:46)
[2021-10-25] MEDS: DOCUSATE SODIUM 100 MG CAP PO SCH ×3 (01:31→22:47)
[2021-10-25] MEDS: IBUPROFEN 600 MG TAB PO SCH ×4 (01:32→21:30)
[2021-10-25 08:24] LABS: Hematocrit 23.6 % (30.3-42.9); Hemoglobin 7.8 gm/dl (10.1-14.3)
--- NOTE | 2021-10-25 08:49 | Progress Note ---
Assessment and Plan A: 21 y.o. s/p of infant. ~ 13 hrs. - Patient Problems (1) delivery Current Visit: Yes Status: Acute Plan to address problem: Continue with care. Anticipate discharge home on 10/26. Subjective - Subjective Date of service: 10/25/21 Principal diagnosis: s/p of infant. Pospartum ~ 13 hours. Patient reports: appetite normal, voiding normally, pain well controlled, flatus, ambulating normally : doing well, in NICU Objective - Vital Signs Latest vital signs: Vital Signs Temp Pulse Resp BP BP Pulse Ox Pulse Ox 10/25/21 07:43 98.5 F 81 20 108/72 99 10/25/21 06:00 18 10/25/21 04:42 99.1 F 67 16 98/61 99 10/25/21 02:32 18 10/25/21 01:32 18 10/24/21 23:00 97.9 F 85 18 111/55 100 98 10/24/21 22:21 101 H 118/63 10/24/21 20:59 74 93 10/24/21 20:57 77 100 10/24/21 20:53 77 90 97 10/24/21 20:52 74 100 10/24/21 20:51 73 131/64 10/24/21 20:47 82 100 10/24/21 20:46 99 H 68 L 10/24/21 20:45 97.9 F 17 10/24/21 20:42 85 97 10/24/21 20:40 98 H 92 10/24/21 20:37 81 87 10/24/21 20:33 110 H 89 10/24/21 20:32 103 H 100 10/24/21 20:31 94 H 112/85 10/24/21 20:27 130 H 90 10/24/21 20:25 202 H 80 L 10/24/21 20:22 69 0 L 10/24/21 20:20 72 100 10/24/21 20:17 65 84 10/24/21 20:14 74 100 10/24/21 20:11 79 108/79 83 L 10/24/21 20:09 87 100 10/24/21 20:04 85 91 10/24/21 19:59 92 H 95 10/24/21 19:54 95 H 100 10/24/21 19:51 92 H 118/56 87 10/24/21 19:49 90 100 10/24/21 19:46 98 H 93 10/24/21 19:44 94 H 100 10/24/21 19:39 104 H 100 10/24/21 19:38 103 H 102/62 10/24/21 19:34 122 H 78 L 10/24/21 19:29 121 H 100 10/24/21 19:24 99 H 102/58 100 10/24/21 19:19 81 99 10/24/21 19:14 84 99 10/24/21 19:09 94 H 100 10/24/21 19:08 75 78/50 10/24/21 19:04 84 100 10/24/21 18:59 87 100 10/24/21 18:57 92 H 84/53 10/24/21 18:54 86 99 10/24/21 18:53 78 79/50 10/24/21 18:49 92 H 100 10/24/21 18:44 90 100 10/24/21 18:39 83 100 10/24/21 18:38 86 80/50 10/24/21 18:34 82 100 10/24/21 18:29 82 100 10/24/21 18:24 82 86/51 100 10/24/21 18:19 78 100 10/24/21 18:14 83 100 10/24/21 18:09 95 H 110/68 100 10/24/21 18:05 98.3 F 19 10/24/21 18:04 86 100 10/24/21 17:59 100 H 100 10/24/21 17:54 101 H 94 10/24/21 17:53 90 118/69 10/24/21 17:49 106 H 100 10/24/21 17:44 91 H 100 10/24/21 17:40 90 115/67 10/24/21 17:39 90 99 10/24/21 17:34 87 100 10/24/21 17:29 95 H 99 10/24/21 17:24 99 H 113/73 100 10/24/21 17:19 88 100 10/24/21 17:16 93 H 86 10/24/21 17:15 85 118/69 10/24/21 17:14 100 H 100 10/24/21 17:10 112 H 86 10/24/21 17:09 102 H 116/67 100 10/24/21 17:07 78 116/67 10/24/21 17:04 95 H 100 10/24/21 16:59 114 H 100 10/24/21 16:54 94 H 100 10/24/21 16:53 90 108/64 10/24/21 16:49 116 H 98 10/24/21 16:44 107 H 100 10/24/21 16:39 98 H 102/59 100 10/24/21 16:34 95 H 100 10/24/21 16:29 83 100 10/24/21 16:25 82 102/62 10/24/21 16:24 86 100 10/24/21 16:19 81 100 10/24/21 16:14 104 H 100 10/24/21 16:09 83 101/58 100 10/24/21 16:04 108 H 100 10/24/21 15:59 82 100 10/24/21 15:58 103 H 91 10/24/21 15:54 90 100 10/24/21 15:53 90 92/53 10/24/21 15:49 85 100 10/24/21 15:44 88 100 10/24/21 15:39 103 H 100 10/24/21 15:38 86 90/53 10/24/21 15:34 81 100 10/24/21 15:29 82 100 10/24/21 15:24 81 92/50 100 10/24/21 15:19 81 100 10/24/21 15:14 80 100 10/24/21 15:09 85 100 10/24/21 15:08 78 90/50 10/24/21 15:04 84 100 10/24/21 14:59 85 100 10/24/21 14:54 98 H 100 10/24/21 14:53 97 H 101/57 10/24/21 14:50 98 F 19 10/24/21 14:49 88 100 10/24/21 14:44 91 H 100 10/24/21 14:40 93 H 103/60 10/24/21 14:39 98 H 100 10/24/21 14:34 89 100 10/24/21 14:29 103 H 98 10/24/21 14:24 88 109/55 99 10/24/21 14:19 95 H 100 04/07/22 14:14 88 99 10/24/21 14:09 103 H 102/54 100 10/24/21 14:04 87 100 10/24/21 13:59 91 H 100 10/24/21 13:54 95 H 100 10/24/21 13:53 85 103/57 10/24/21 13:49 112 H 100 10/24/21 13:44 103 H 99 10/24/21 13:39 99 H 103/57 99 10/24/21 13:34 101 H 99 10/24/21 13:29 95 H 99 10/24/21 13:24 97 H 100 10/24/21 13:23 103 H 98/53 10/24/21 13:19 102 H 100 10/24/21 13:14 106 H 100 10/24/21 13:09 103 H 100 10/24/21 13:08 102 H 95/53 10/24/21 13:04 99 H 99 10/24/21 12:59 106 H 100 10/24/21 12:56 96 H 102/58 10/24/21 12:54 110 H 99 10/24/21 12:49 109 H 100 10/24/21 12:45 98.5 F 19 10/24/21 12:44 103 H 100 10/24/21 12:39 117 H 102/59 99 10/24/21 12:34 100 H 99 10/24/21 12:29 92 H 99 10/24/21 12:24 101 H 97/53 99 10/24/21 12:19 92 H 99 10/24/21 12:14 94 H 99 10/24/21 12:09 92 H 99 10/24/21 12:08 100 H 99/54 10/24/21 12:04 95 H 99 10/24/21 11:59 96 H 99 10/24/21 11:54 101 H 96/55 99 10/24/21 11:49 99 H 99 10/24/21 11:44 97 H 98 10/24/21 11:39 100 H 99 10/24/21 11:38 112 H 96/53 10/24/21 11:34 99 H 98 10/24/21 11:29 98 H 98 10/24/21 11:24 98 H 98 10/24/21 11:23 100 H 102/58 10/24/21 11:19 98 H 99 10/24/21 11:14 93 H 99 10/24/21 11:09 92 H 99 10/24/21 11:08 85 108/57 10/24/21 11:05 98.5 F 18 10/24/21 11:04 98 H 100 10/24/21 10:59 87 100 10/24/21 10:54 105 H 112/59 100 10/24/21 10:49 90 100 10/24/21 10:44 80 100 10/24/21 10:39 82 100 10/24/21 10:38 88 111/55 10/24/21 10:36 79 115/58 10/24/21 10:34 85 112/57 100 10/24/21 10:32 86 116/59 10/24/21 10:30 85 110/55 10/24/21 10:29 82 100 10/24/21 10:28 86 118/58 10/24/21 10:26 79 116/56 10/24/21 10:24 91 H 116/58 100 10/24/21 10:22 74 112/56 10/24/21 10:20 105 H 135/82 10/24/21 10:19 104 H 100 10/24/21 10:18 93 H 123/61 10/24/21 10:16 80 111/58 10/24/21 10:14 82 99/53 10/24/21 10:12 88 97/55 10/24/21 10:10 76 97/51 10/24/21 10:08 114 H 110/63 10/24/21 10:06 111 H 101/55 100 10/24/21 10:04 98 H 98/56 10/24/21 10:02 122 H 99/54 10/24/21 10:01 91 H 100 10/24/21 09:56 109 H 100 10/24/21 09:54 104 H 103/58 85 10/24/21 09:51 98 H 100 10/24/21 09:46 95 H 100 10/24/21 09:42 117 H 86 10/24/21 09:41 107 H 100 10/24/21 09:36 98 H 100 10/24/21 09:32 100 H 107/56 93 10/24/21 09:31 114 H 98 04/07/22 09:26 119 H 100 10/24/21 09:21 106 H 100 10/24/21 09:16 104 H 95 10/24/21 09:15 109 H 84 10/24/21 09:11 96 H 100 10/24/21 09:06 97 H 100 10/24/21 09:05 54 L 60 L 10/24/21 08:52 109 H 100 Intake and Output 10/24/21 10/25/21 10/25/21 22:59 06:59 14:59 Intake Total 100.700 Output Total 2100 Balance -1998.300 Intake: IV 100.700 AMPICILLIN/NS 1 GM/50 ML 50 1 gm In 50 ml @ 100 mls/ hr IV Q4H [facility] Rx#: [id number] PITOCin/NS 30 UNIT/500ML 50.700 30,000 milliunits In 500 ml @ 4 MILLIUNITS/MIN 4 mls/hr IV DIRECT ONE Rx#:[id number] Output: Urine 2100 Indwelling Catheter 1500 Void 600 Other: Total, Output Amount 600 Estimated Blood Loss 200 - Exam Breasts: Present: deferred Cardiovascular: Present: Regular rate Lungs: Present: Normal air movement Abdomen: Present: normal appearance, soft Uterus: Present: normal, firm Extremities: Present: normal - Labs Labs: Abnormal lab results 10/25/21 Range/Units 08:14 Hgb 7.8 L (10.1-14.3) gm/dl Hct 23.6 L (30.3-42.9) %
--- NOTE | 2021-10-25 09:55 | Post Anesthesia Evaluation ---
- Post Anesthesia Evaluation Patient Participated: Yes Airway Patent: Yes Stable Respiratory Function: Yes Nausea/Vomiting: No Temp > 96.8F: Yes Pain Manageable: Yes Adequeate Hydration: Yes Anesthesia Complications: No Block Receding Appropriately: Yes Patient on Ventilator: No
[2021-10-25] MEDS: PRENATAL VIT27-FE FUMARATE-FOLIC ACID VIT TAB PO SCH (10:26)
[2021-10-25] MEDS: FERROUS SULFATE 325 MG TAB PO SCH ×3 (10:26→21:28)
[2021-10-26] MEDS ORDERED: TETANUS,DIPH,PERTUSS(ACELL) VACCINE 0.5 ML SYRINGE IM ONE (06:00)
[2021-10-26] MEDS: FERROUS SULFATE 325 MG TAB PO SCH ×2 (09:09→13:31)
[2021-10-26] MEDS: PRENATAL VIT27-FE FUMARATE-FOLIC ACID VIT TAB PO SCH (09:10)
[2021-10-26] MEDS: DOCUSATE SODIUM 100 MG CAP PO SCH (09:10)
[2021-10-26 10:15] VITALS: BP 110/67
--- NOTE | 2021-10-26 13:08 | Discharge Summary ---
Providers - Providers Date of Admission: 10/22/21 20:11 Date of discharge: 10/26/21 Attending physician: AUGUSTA CARDENAS 10/25/21 00:46 Consult to [employer] [CONS] Routine Reason For Exam: assistance with , SNS Primary care physician: ESTHETICIAN/OWNER Hospitalization Reason for admission: labor, rupture of membranes ( premature) Delivery: Procedure details: See delivery note for details Episiotomy: none Laceration: none Other procedures: none Discharge diagnosis: delivery Buhler baby: female Pertinent studies: Obstetrical ultrasound Hospital course: Please see dictated H&P for details. Patient was admitted for premature rupture membranes. Patient received 2 doses of betamethasone and had induction of labor. Patient underwent a normal spontaneous vaginal delivery. is doing well in the NICU. Her course was benign. She was afebrile throughout her stay. Her day 1 hematocrit was 23.6%. Patient had no orthostatic symptoms at time of discharge. Patient was tolerating diet. Patient desires to breast and bottlefeeding and desires oral contraceptives. Condition at discharge: Good Disposition: 01 HOME / SELF CARE / HOMELESS - Discharge Diagnoses (1) 34 weeks gestation of Status: Acute (2) PROM (premature rupture of membranes) Status: Acute Qualifiers: PROM onset of labor timing: onset of labor within 24 hours of rupture PROM gestational age: -third trimester Qualified Code(s): O42.013 - premature rupture of membranes, onset of labor within 24 hours of rupture, third trimester (3) delivery Status: Acute Plan - Discharge Medications Prescriptions: Ferrous Sulfate [Feosol 325 MG tab] 325 mg PO BID #60 tablet Ibuprofen [Motrin] 800 mg PO TID PRN #30 tablet PRN Reason: Pain - Provider Discharge Summary Activity: routine, no sex for 6 weeks Diet: routine Instructions: routine Additional instructions: [] Smoking cessation referral if applicable(refer to patient education folder for contact #) [] Refer to [facility] Booklet Call your doctor immediately for: * Fever > 100.5 * Heavy vaginal bleeding ( >1 pad per hour) * Severe persistent headache * Shortness of breath * Reddened, hot, painful area to leg or breast - Follow up plan Follow up: PRIMARY CARE, [Primary Care Provider] - 7 Days
[2021-10-26] MEDS: IBUPROFEN 600 MG TAB PO SCH (13:31)
== END 2021-10-26 14:30 | disposition home or self-care (01) | DRG 775 ==
LOC: TRG 19:03 → APU 19:04 → LD 20:11 → TRG 20:11 → OB 10-24 23:06
PROVIDERS: ADMIT Obstetrics & Gynecology; ATTEND Obstetrics & Gynecology
PROC: 10E0XZZ Delivery of Products of Conception, External Approach (ICD-10-PCS; principal; 2021-10-24)
PROC: 3E0R3BZ Introduction of Anesthetic Agent into Spinal Canal, Percutaneous Approach (ICD-10-PCS; 2021-10-24)
PROC: 00HU33Z Insertion of Infusion Device into Spinal Canal, Percutaneous Approach (ICD-10-PCS; 2021-10-24)
PROC: 3E033VJ Introduction of Other Hormone into Peripheral Vein, Percutaneous Approach (ICD-10-PCS; 2021-10-24)
PROC: 3E0234Z Introduction of Serum, Toxoid and Vaccine into Muscle, Percutaneous Approach (ICD-10-PCS; 2021-10-26)
DX: O42.013 Preterm premature rupture of membranes, onset of labor within 24 hours of rupture, third trimester (principal); Z37.0 Single live birth; O99.354 Diseases of the nervous system complicating childbirth; Z3A.34 34 weeks gestation of pregnancy; Z20.822 Contact with and (suspected) exposure to COVID-19; Z23 Encounter for immunization; G43.909 Migraine, unspecified, not intractable, without status migrainosus; O60.14X0 Preterm labor third trimester with preterm delivery third trimester, not applicable or unspecified; O76 Abnormality in fetal heart rate and rhythm complicating labor and delivery
CPT/HCPCS: 36415; 76815; 85014; 85018; 85025; 86592; 86850; 86900; 86901; 87116; 87806; 88307; G0378; J3490; J0290; J0702; J1364; J2590; J7120; U0003